=== PATIENT | male | born 1970 | race Caucasian/White ===

== ENCOUNTER 2016-10-29 12:32 | Emergency (ER) | payer SELFPAY ==
[2016-10-29 13:30] LABS: Basophils % (Auto) 0.2 % (0.0-1.8); Eosinophils % (Auto) 0.6 % (0.0-4.3); Hematocrit 46.1 % (35.5-45.6); Hemoglobin 15.6 gm/dl (11.8-15.2); Mean Corpuscular HGB Conc 34 % (32-34); Mean Corpuscular Hemoglobin 28 pg (28-32); Mean Corpuscular Volume 83 fl (84-94); Platelet Count 203 K/mm3 (140-440); Red Blood Count 5.53 M/mm3 (3.65-5.03); Red Cell Distribution Width 12.6 % (13.2-15.2)
[2016-10-29 13:48] LABS: Anion Gap 22 mmol/L; B-Hydroxybutyrate 14.9 mg/dL (0.2-2.8); BUN/Creatinine Ratio 28.57; Blood Urea Nitrogen 20 mg/dL (9-20); Carbon Dioxide 22 mmol/L (22-30); Chloride 89.5 mmol/L (98-107); Potassium 4.5 mmol/L (3.6-5.0); Sodium 129 mmol/L (137-145)
[2016-10-29 13:53] LABS: Glucose 511 mg/dL (75-100)
--- NOTE | 2016-10-29 14:02 | Admit Criteria Form ---
Admission Criteria Documentation: DIABETES Clinical Indications for Admission to Inpatient Care (Place 'X' for any and all applicable criteria): Admission is indicated by presence of ALL (if I & II) or ANY ONE (if III or IV) of the following (1)(2)(3)(4): [X]I. Diabetes is uncontrolled as indicated by ANY ONE of the following: [X]a) Diabetic ketoacidosis as indicated by ALL of the following (8): [X]i) Hyperglycemia (eg, plasma glucose greater than 200 mg/ dL (11.1 mmol/L)) [ ]ii) Acidosis (eg, arterial pH less than 7.30, serum bicarbonate level less than 15 mEq/L (mmol/L)) [X]iii) Moderate ketonuria or ketonemia [ ]b) Hyperglycemic hyperosmolar state as indicated by ALL of the following(9)(10): [ ]i) Neurologic dysfunction (eg, stupor, coma, hemiparesis , seizure)(13) [ ]ii) Plasma glucose greater than 600 mg/dL (33.3 mmol/L) [ ]iii) Serum osmolality greater than 320 mOsm/kg (mmol/kg) [X]c) Severe signs or symptoms secondary to hyperglycemia indicated by ANY ONE of the following: [ ]i) Altered mental status(10) [ ]ii) Significant hypovolemia or dehydration [ ]iii) Intractable nausea or vomiting [ ]iv) Unexplained fever or severe infection [X]v) Severe electrolyte abnormality (eg, hypokalemia, hyperkalemia, hypernatremia) [ ]II. Management at other levels of care (Also use Diabetes: Observation Care as appropriate) is not feasible because of ANY ONE of the following: [ ]a) Condition was not adequately corrected with treatment at other levels of care. [ ]b) Treatment at other levels of care is not appropriate because of condition severity (eg, hyperosmolar coma). [X]III. Contraindications and/or Inappropriate clinical situations for Observational Care in patients with Diabetes, when ANY ONE of the following is required: [X]a) Patient require specific diagnostic workup or therapeutic intervention 22 [ ]b) Patient with abnormal vital signs or altered mental status 23 [ ]IV. General contraindications and/or Inappropriate clinical situations for Observational Care in patients with Diabetes, when ANY ONE of the following is required: [ ]a) Prediction of prolongation of LOS based on ANY ONE of the following may be considered as a contraindication for observational care 2, 3, 4, 5, 6, 7, 8, 9, 10, 11 [ ]i) Age > 65 yrs. [ ]ii) Patient arriving by ambulance [ ]iii) Patient with high acuity [ ]iv) Patient requiring vital sign monitoring [ ]v) Patient on IV medication [ ]b) Systolic blood pressures 180mmHg 3,12 [ ]c) Patient with altered mental status including delirium and other alteration of consciousness, (3) [ ]d) Patient whose discharge disposition will be to a long-term home or rehabilitation home should not be managed in Emergency Department Observation Unit. CMS rule requires 3 days hospital stay before such placement.3,13 [ ]e) Patient with failure to thrive due to broad array of etiologies 3,16,17 [ ]f) Inability to ambulate 3,14 Extended stay beyond goal length of stay may be needed for(3)(20): [ ]a) Treatment of precipitating causes [ ]b) Development of hypoglycemia [ ]c) Complications of treatment [ ]d) Complications of decompensated diabetes (eg, acute gastric dilatation, persistent metabolic or neurologic derangement) [ ]e) Active Comorbidities [ ]f) Older patients( 65 years or older) The original [facility] content created by [employer] has been revised. The portions of the content which have been revised are identified through the use of italic text or in bold,and [facility] [employer] has neither reviewed nor approved the modified material. All other unmodified content is copyright [facility]. Please see references footnoted in the original [facility] edition 2016
[2016-10-29] MEDS ORDERED: NACL 0.9% 1000 ML 1,000 ML ONE (14:14)
[2016-10-29] MEDS ORDERED: NACL 0.9% 1000 ML 1,000 ML IV ONE (14:31)
[2016-10-29] MEDS ORDERED: APRESOLINE IV ONE (15:05)
--- NOTE | 2016-10-29 18:41 | Emergency Department Report ---
HPI - General Chief Complaint: Hyperglycemia Time Seen by Provider: 10/29/16 15:07 - HPI HPI: The patient is a 46-year-old male with a history of diabetes and hypertension, who presents for evaluation of lightheadedness and generalized weakness. The patient reports weeks of mild generalized weakness and moderate to severe lightheadedness, elicited with standing or exertion, improved with rest lying flat. He states that his symptoms were worse over the past day, and he found his blood sugar to be significantly elevated, prompting presentation to the emergency department. He admits to polyuria, polyphagia frequency, dry mouth. He shares that he discontinued use of this diabetes and hypertension medications without approval from his physician to do so. The patient denies fever, head injury, headache, neck pain, neck stiffness, vision or hearing changes, smell or taste changes, paresthesias, facial drooping, slurred speech, seizure-like activity, or other focal neurological deficit. ED Past Medical Hx - Past Medical History Hx Hypertension: Yes Hx Diabetes: Yes - Social History Smoking Status: Never Smoker Substance Use Type: Alcohol - Medications Home Medications: Home Medications Medication Instructions Recorded Confirmed Last Taken Type Lisinopril [Zestril TAB] 20 mg PO QDAY #30 tablet 10/29/16 Unknown Rx glipiZIDE [glipiZIDE ER] 5 mg PO QAM #30 tab.er.24 10/29/16 Unknown Rx ED Review of Systems ROS: Stated complaint: HBP HBS Other details as noted in HPI Constitutional: denies: fever; reports lightheadedness ENT: denies: throat or neck pain Respiratory: denies: cough, shortness of breath Cardiovascular: denies: chest pain Endocrine: denies unexplained weight loss or gain Gastrointestinal: denies: abdominal pain, nausea Genitourinary: reports polyuria denies: dysuria Musculoskeletal: denies: leg swelling Skin: denies: rash Neurological: denies: headache Hematological/Lymphatic: denies: easy bleeding or easy bruising Psych: denies sadness or hopelessness Physical Exam - Physical Exam Vital Signs: Vital Signs 10/29/16 12:38 Temperature 98 F Pulse Rate 68 Respiratory 18 Rate Blood Pressure 186/130 O2 Sat by Pulse 100 Oximetry Physical Exam: General: well-nourished, well-developed, no acute distress Head: Normocephalic, atraumatic Eyes: normal sclera, no nystagmus ENT: Mucous membranes are pale and dry Neck: No neck stiffness, no cervical adenopathy Respiratory: Breath sounds equal bilaterally, no wheezing, rales, or rhonchi Cardio: S1 and S2 present, no murmurs, rubs, gallops, capillary refill is delayed Abdomen: Normoactive bowel sounds, soft abdomen, no rigidity, no guarding or rebound tenderness Musc: No pitting edema Skin: No rash Neuro: no facial drooping, normal speech Psych: Normal affect ED Course Vital Signs 10/29/16 12:38 Temperature 98 F Pulse Rate 68 Respiratory 18 Rate Blood Pressure 186/130 O2 Sat by Pulse 100 Oximetry ED Medical Decision Making - Lab Data Result diagrams: 10/29/16 13:20 10/29/16 13:19 - Medical Decision Making The patient was seen and examined by myself. The patient is placed on a director of cardiac cath lab and continuous pulse ox. On initial evaluation, the patient was found to be in no distress. Evaluation orders were placed. The patient is given 1 L normal saline fluid bolus for treatment of dehydration. Lab results reveal elevated glucose of 511, with normal pH level and bicarbonate, not consistent with DKA. Labs also exhibited elevated RBC, hemoglobin, and hematocrit, consistent with hemoconcentration and exam findings of dehydration, and otherwise labs were grossly unremarkable. The patient received 10 units of IV insulin for elevated glucose and IV hydralazine for her elevated blood pressure. The patient was reevaluated and reported that their symptoms were markedly improved. The patient is stable for discharge with outpatient follow- up. The patient is given follow-up and return instructions. The patient expressed understanding and agreed with the plan. The patient is discharged in stable condition. Critical care attestation.: If time is entered above; I have spent that time in minutes in the direct care of this critically ill patient, excluding procedure time. ED Disposition Clinical Impression: Acute hyperglycemia, Dehydration, Asymptomatic hypertensive urgency, Orthostatic lightheadedness Disposition: DISCHARGED TO HOME OR SELFCARE Is pt being admited?: No Does the pt Need Aspirin: No Condition: Stable Instructions: Chronic Hypertension (ED), Diabetes Mellitus Type 2 in Adults (ED ), Diabetic Retinopathy (ED), Diabetic Neuropathy (ED), Meal Planning with Diabetes Exchanges (DC) Prescriptions: glipiZIDE [glipiZIDE ER] 5 mg PO QAM #30 tab.er.24 Lisinopril [Zestril TAB] 20 mg PO QDAY #30 tablet Referrals: PRIMARY CARE, [Primary Care Provider] - 3-5 Days Time of Disposition: 18:41 Print Language: URDU
[2016-10-29 18:54] VITALS: BP 127/78
== END 2016-10-29 19:22 | disposition home or self-care (01) ==
LOC: ED 12:32
DX: E11.65 Type 2 diabetes mellitus with hyperglycemia (principal); E86.0 Dehydration; I10 Essential (primary) hypertension; R42 Dizziness and giddiness
CPT/HCPCS: 36415; 80048; 82010; 82140; 82805; 82962; 85025; 96361; 96374; 96375; 99284; J0360; J7030; J1815

== ENCOUNTER 2018-10-07 13:56 | Inpatient (IN) | payer SELFPAY ==
[2018-10-07 18:44] LABS: Basophils # (Auto) 0.1 K/mm3 (0.0-0.1); Basophils % (Auto) 0.5 % (0.0-1.8); Eosinophils % (Auto) 0.2 % (0.0-4.3); Hematocrit 42.3 % (35.5-45.6); Hemoglobin 13.9 gm/dl (11.8-15.2); Lymphocytes # (Auto) 1.4 K/mm3 (1.2-5.4); Lymphocytes % (Auto) 7.2 % (13.4-35.0); Mean Corpuscular HGB Conc 33 % (32-34); Mean Corpuscular Volume 89 fl (84-94); Monocytes # (Auto) 1.5 K/mm3 (0.0-0.8); Monocytes % (Auto) 7.9 % (0.0-7.3); Platelet Count 244 K/mm3 (140-440); Red Blood Count 4.78 M/mm3 (3.65-5.03)
[2018-10-07 18:57] LABS: BUN/Creatinine Ratio 27; Blood Urea Nitrogen 24 mg/dL (9-20); Calcium 9.5 mg/dL (8.4-10.2); Hemolysis Index 23
[2018-10-07] MEDS ORDERED: NACL 0.9% 1000 ML 1,000 ML IV ONE ×3 (19:20)
[2018-10-07] MEDS ORDERED: ZOSYN/NS 4.5GM/100ML 4.5 GM/100 ML VIAL IV ONE (19:21)
[2018-10-07] MEDS ORDERED: VANCOMYCIN/NS 1 GM/250 ML 1 GM/250 ML BAG IV ONE (19:21)
--- NOTE | 2018-10-07 19:24 | Emergency Department Report ---
- General Chief complaint: Skin/Abscess/Foreign Body Stated complaint: HYPERGLYCEMIA Time Seen by Provider: 10/07/18 18:32 Source: family, correctional counselor/case manager Mode of arrival: Ambulatory Limitations: Language Barrier - History of Present Illness MD complaint: abscess/boil (Back of neck) -: Gradual Location: neck Severity: severe Severity scale (0 -10): 8 Quality: aching, dull Consistency: constant Improves with: none Worsens with: none Associated symptoms: denies other symptoms Treatments Prior to Arrival: none - Related Data Previous Rx's Medication Instructions Recorded Last Taken Type Lisinopril [Zestril TAB] 20 mg PO QDAY #30 tablet 10/29/16 Unknown Rx glipiZIDE [glipiZIDE ER] 5 mg PO QAM #30 tab.er.24 10/29/16 Unknown Rx Allergies Allergy/AdvReac Type Severity Reaction Status Date / Time No Known Allergies Allergy Verified 10/07/18 14:05 [facility]cess [facility] Chief Complaint: Skin/Abscess/Foreign Body Stated Complaint: HYPERGLYCEMIA Time Seen by Provider: 10/07/18 18:32 Home Medications: Previous Rx's Medication Instructions Recorded Last Taken Type Lisinopril [Zestril TAB] 20 mg PO QDAY #30 tablet 10/29/16 Unknown Rx glipiZIDE [glipiZIDE ER] 5 mg PO QAM #30 tab.er.24 10/29/16 Unknown Rx Allergies/Adverse Reactions: Allergies Allergy/AdvReac Type Severity Reaction Status Date / Time No Known Allergies Allergy Verified 10/07/18 14:05 ED Review of Systems ROS: Stated complaint: HYPERGLYCEMIA Other details as noted in HPI Comment: All other systems reviewed and negative Constitutional: denies: chills, fever Eyes: denies: eye pain, eye discharge, vision change ENT: denies: ear pain, throat pain Respiratory: denies: cough, shortness of breath, wheezing Cardiovascular: denies: chest pain, palpitations Endocrine: no symptoms reported Gastrointestinal: denies: abdominal pain, nausea, diarrhea Genitourinary: denies: urgency, dysuria Musculoskeletal: denies: back pain, joint swelling, arthralgia Skin: other (Posterior neck redness and swelling.). denies: rash, lesions Neurological: denies: headache, weakness, numbness, paresthesias Psychiatric: denies: anxiety, depression Hematological/Lymphatic: denies: easy bleeding, easy bruising ED Past Medical Hx - Past Medical History Hx Hypertension: Yes Hx Diabetes: Yes - Surgical History Past Surgical History?: No - Social History Smoking Status: Never Smoker Substance Use Type: None - Medications Home Medications: Home Medications Medication Instructions Recorded Confirmed Last Taken Type Lisinopril [Zestril TAB] 20 mg PO QDAY #30 tablet 10/29/16 10/07/18 Unknown Rx glipiZIDE [glipiZIDE ER] 5 mg PO QAM #30 tab.er.24 10/29/16 10/07/18 Unknown Rx ED Physical Exam - General Limitations: Language Barrier General appearance: alert, in no apparent distress - Head Head exam: Present: atraumatic, normocephalic - Eye Eye exam: Present: normal appearance, PERRL, EOMI Pupils: Present: normal accommodation - ENT ENT exam: Present: normal orophraynx, mucous membranes moist, other (Posterior neck erythema and induration consistent with Cellulitis. Tender to palpation and warm to touch.) - Neck Neck exam: Present: normal inspection, full ROM. Absent: tenderness, meningismus - Respiratory Respiratory exam: Present: normal lung sounds bilaterally. Absent: respiratory distress, wheezes, rales, rhonchi, stridor - Cardiovascular Cardiovascular Exam: Present: regular rate, normal rhythm, normal heart sounds. Absent: systolic murmur, diastolic murmur, rubs, gallop - GI/Abdominal GI/Abdominal exam: Present: soft, normal bowel sounds. Absent: distended, tenderness, guarding, rebound - Rectal Rectal exam: Present: deferred - Extremities Exam Extremities exam: Present: normal inspection, full ROM, normal capillary refill. Absent: tenderness - Back Exam Back exam: Present: normal inspection. Absent: full ROM, tenderness - Neurological Exam Neurological exam: Present: alert, oriented X3, CN II-XII intact - Psychiatric Psychiatric exam: Present: normal affect, normal mood - Skin Skin exam: Present: warm, dry, intact, normal color. Absent: rash ED Course Vital Signs 10/07/18 10/07/18 14:05 17:51 Temperature 98.1 F Pulse Rate 94 H 74 Respiratory 18 16 Rate Blood Pressure 129/79 Blood Pressure 114/71 [Left] O2 Sat by Pulse 96 98 Oximetry - Consultations Consultation #1: 10/07/18 21:00 Dr Jackie Gauthier to admit patient for further management. ED Medical Decision Making - Lab Data Result diagrams: 10/07/18 18:25 10/07/18 21:16 Lab Results 10/07/18 10/07/18 10/07/18 Range/Units 14:07 18:25 18:25 WBC 19.5 H (4.5-11.0) K/mm3 RBC 4.78 (3.65-5.03) M/mm3 Hgb 13.9 (11.8-15.2) gm/dl Hct 42.3 (35.5-45.6) % MCV 89 (84-94) fl MCH 29 (28-32) pg MCHC 33 (32-34) % RDW 13.0 L (13.2-15.2) % Plt Count 244 (140-440) K/mm3 Lymph % (Auto) 7.2 L (13.4-35.0) % Miller % (Auto) 7.9 H (0.0-7.3) % Eos % (Auto) 0.2 (0.0-4.3) % Baso % (Auto) 0.5 (0.0-1.8) % Lymph # 1.4 (1.2-5.4) K/mm3 Miller # 1.5 H (0.0-0.8) K/mm3 Eos # 0.0 (0.0-0.4) K/mm3 Baso # 0.1 (0.0-0.1) K/mm3 Seg Neutrophils % 84.2 H (40.0-70.0) % Seg Neutrophils # 16.4 H (1.8-7.7) K/mm3 PT (12.2-14.9) Sec. INR (0.87-1.13) APTT (24.2-36.6) Sec. VBG pH (7.320-7.420) Sodium 123 L (137-145) mmol/L Potassium 4.3 (3.6-5.0) mmol/L Chloride 78.4 L (98-107) mmol/L Carbon Dioxide 17 L (22-30) mmol/L Anion Gap 32 mmol/L BUN 24 H (9-20) mg/dL Creatinine 0.9 (0.8-1.5) mg/dL Estimated GFR > 60 ml/min BUN/Creatinine Ratio 27 % Glucose 480 H (75-100) mg/dL POC Glucose 420 H (70-105) Hemoglobin A1c (4-6) % Lactic Acid (0.7-2.0) mmol/L Calcium 9.5 (8.4-10.2) mg/dL Phosphorus (2.5-4.5) mg/dL Magnesium (1.7-2.3) mg/dL Urine Color (Yellow) Urine Turbidity (Clear) Urine pH (5.0-7.0) Ur Specific [place] (1.003-1.030) Urine Protein (Negative) mg/dL Urine Glucose (UA) (Negative) mg/dL Urine Ketones (Negative) mg/dL Urine Blood (Negative) Urine Nitrite (Negative) Urine Bilirubin (Negative) Urine Urobilinogen (<2.0) mg/dL Ur Leukocyte Esterase (Negative) Urine WBC (Auto) (0.0-6.0) /HPF Urine RBC (Auto) (0.0-6.0) /HPF U Epithel Cells (Auto) (0-13.0) /HPF 10/07/18 10/07/18 10/07/18 Range/Units 18:25 18:25 19:40 WBC (4.5-11.0) K/mm3 RBC (3.65-5.03) M/mm3 Hgb (11.8-15.2) gm/dl Hct (35.5-45.6) % MCV (84-94) fl MCH (28-32) pg MCHC (32-34) % RDW (13.2-15.2) % Plt Count (140-440) K/mm3 Lymph % (Auto) (13.4-35.0) % Miller % (Auto) (0.0-7.3) % Eos % (Auto) (0.0-4.3) % Baso % (Auto) (0.0-1.8) % Lymph # (1.2-5.4) K/mm3 Miller # (0.0-0.8) K/mm3 Eos # (0.0-0.4) K/mm3 Baso # (0.0-0.1) K/mm3 Seg Neutrophils % (40.0-70.0) % Seg Neutrophils # (1.8-7.7) K/mm3 PT 12.8 (12.2-14.9) Sec. INR 0.92 (0.87-1.13) APTT 21.3 L (24.2-36.6) Sec. VBG pH 7.278 L (7.320-7.420) Sodium (137-145) mmol/L Potassium (3.6-5.0) mmol/L Chloride (98-107) mmol/L Carbon Dioxide (22-30) mmol/L Anion Gap mmol/L BUN (9-20) mg/dL Creatinine (0.8-1.5) mg/dL Estimated GFR ml/min BUN/Creatinine Ratio % Glucose (75-100) mg/dL POC Glucose (70-105) Hemoglobin A1c > 20.1 H (4-6) % Lactic Acid (0.7-2.0) mmol/L Calcium (8.4-10.2) mg/dL Phosphorus (2.5-4.5) mg/dL Magnesium (1.7-2.3) mg/dL Urine Color (Yellow) Urine Turbidity (Clear) Urine pH (5.0-7.0) Ur Specific [place] (1.003-1.030) Urine Protein (Negative) mg/dL Urine Glucose (UA) (Negative) mg/dL Urine Ketones (Negative) mg/dL Urine Blood (Negative) Urine Nitrite (Negative) Urine Bilirubin (Negative) Urine Urobilinogen (<2.0) mg/dL Ur Leukocyte Esterase (Negative) Urine WBC (Auto) (0.0-6.0) /HPF Urine RBC (Auto) (0.0-6.0) /HPF U Epithel Cells (Auto) (0-13.0) /HPF 10/07/18 10/07/18 10/07/18 Range/Units 19:40 20:08 20:50 WBC (4.5-11.0) K/mm3 RBC (3.65-5.03) M/mm3 Hgb (11.8-15.2) gm/dl Hct (35.5-45.6) % MCV (84-94) fl MCH (28-32) pg MCHC (32-34) % RDW (13.2-15.2) % Plt Count (140-440) K/mm3 Lymph % (Auto) (13.4-35.0) % Miller % (Auto) (0.0-7.3) % Eos % (Auto) (0.0-4.3) % Baso % (Auto) (0.0-1.8) % Lymph # (1.2-5.4) K/mm3 Miller # (0.0-0.8) K/mm3 Eos # (0.0-0.4) K/mm3 Baso # (0.0-0.1) K/mm3 Seg Neutrophils % (40.0-70.0) % Seg Neutrophils # (1.8-7.7) K/mm3 PT (12.2-14.9) Sec. INR (0.87-1.13) APTT (24.2-36.6) Sec. VBG pH (7.320-7.420) Sodium (137-145) mmol/L Potassium (3.6-5.0) mmol/L Chloride (98-107) mmol/L Carbon Dioxide (22-30) mmol/L Anion Gap mmol/L BUN (9-20) mg/dL Creatinine (0.8-1.5) mg/dL Estimated GFR ml/min BUN/Creatinine Ratio % Glucose (75-100) mg/dL POC Glucose 375 H (70-105) Hemoglobin A1c (4-6) % Lactic Acid 1.30 (0.7-2.0) mmol/L Calcium (8.4-10.2) mg/dL Phosphorus (2.5-4.5) mg/dL Magnesium (1.7-2.3) mg/dL Urine Color Straw (Yellow) Urine Turbidity Clear (Clear) Urine pH 5.0 (5.0-7.0) Ur Specific [place] 1.023 (1.003-1.030) Urine Protein <15 mg/dl (Negative) mg/dL Urine Glucose (UA) >=500 (Negative) mg/dL Urine Ketones 80 (Negative) mg/dL Urine Blood Neg (Negative) Urine Nitrite Neg (Negative) Urine Bilirubin Neg (Negative) Urine Urobilinogen < 2.0 (<2.0) mg/dL Ur Leukocyte Esterase Neg (Negative) Urine WBC (Auto) < 1.0 (0.0-6.0) /HPF Urine RBC (Auto) 1.0 (0.0-6.0) /HPF U Epithel Cells (Auto) < 1.0 (0-13.0) /HPF 10/07/18 10/07/18 10/07/18 Range/Units 21:16 21:16 21:26 WBC (4.5-11.0) K/mm3 RBC (3.65-5.03) M/mm3 Hgb (11.8-15.2) gm/dl Hct (35.5-45.6) % MCV (84-94) fl MCH (28-32) pg MCHC (32-34) % RDW (13.2-15.2) % Plt Count (140-440) K/mm3 Lymph % (Auto) (13.4-35.0) % Miller % (Auto) (0.0-7.3) % Eos % (Auto) (0.0-4.3) % Baso % (Auto) (0.0-1.8) % Lymph # (1.2-5.4) K/mm3 Miller # (0.0-0.8) K/mm3 Eos # (0.0-0.4) K/mm3 Baso # (0.0-0.1) K/mm3 Seg Neutrophils % (40.0-70.0) % Seg Neutrophils # (1.8-7.7) K/mm3 PT (12.2-14.9) Sec. INR (0.87-1.13) APTT (24.2-36.6) Sec. VBG pH (7.320-7.420) Sodium 128 L (137-145) mmol/L Potassium (3.6-5.0) mmol/L Chloride 88.7 L (98-107) mmol/L Carbon Dioxide 17 L (22-30) mmol/L Anion Gap mmol/L BUN 19 (9-20) mg/dL Creatinine 0.8 (0.8-1.5) mg/dL Estimated GFR > 60 ml/min BUN/Creatinine Ratio 24 % Glucose 325 H (75-100) mg/dL POC Glucose 325 H (70-105) Hemoglobin A1c (4-6) % Lactic Acid (0.7-2.0) mmol/L Calcium 8.1 L (8.4-10.2) mg/dL Phosphorus 2.30 L (2.5-4.5) mg/dL Magnesium 1.50 L (1.7-2.3) mg/dL Urine Color (Yellow) Urine Turbidity (Clear) Urine pH (5.0-7.0) Ur Specific [place] (1.003-1.030) Urine Protein (Negative) mg/dL Urine Glucose (UA) (Negative) mg/dL Urine Ketones (Negative) mg/dL Urine Blood (Negative) Urine Nitrite (Negative) Urine Bilirubin (Negative) Urine Urobilinogen (<2.0) mg/dL Ur Leukocyte Esterase (Negative) Urine WBC (Auto) (0.0-6.0) /HPF Urine RBC (Auto) (0.0-6.0) /HPF U Epithel Cells (Auto) (0-13.0) /HPF - Radiology Data Radiology results: report reviewed, image reviewed CT Neck showed Cellulitis of the posterior neck. - Medical Decision Making Posterior Neck Cellulitis. DKA. Uncontrolled Diabetes. Critical Care Time: Yes Critical care time in (mins) excluding proc time.: 65 Critical care attestation.: If time is entered above; I have spent that time in minutes in the direct care of this critically ill patient, excluding procedure time. ED Disposition Clinical Impression: Cellulitis and abscess of neck DKA (diabetic ketoacidoses) Qualifiers: Diabetes mellitus type: type 2 Diabetes mellitus complication detail: without coma Qualified Code(s): E11.10 - Type 2 diabetes mellitus with ketoacidosis without coma Cellulitis Qualifiers: Site of cellulitis: neck Qualified Code(s): L03.221 - Cellulitis of neck Uncontrolled diabetes mellitus Qualifiers: Diabetes mellitus type: type 2 Glycemic state: with hyperglycemia Qualified Code(s): E11.65 - Type 2 diabetes mellitus with hyperglycemia Disposition: 09 OP ADMIT IP TO THIS HOSP Is pt being admited?: Yes Does the pt Need Aspirin: No Condition: Stable Instructions: Diabetic Ketoacidosis (ED), Diabetes Mellitus Type 2 in Adults (ED) Referrals: PRIMARY CARE, [Primary Care Provider] - 3-5 Days Time of Disposition: 21:15
[2018-10-07] MEDS ORDERED: VANCOMYCIN 1,500 MG in NACL 0.9% 500 ML 500 ML IV ONE (19:30)
[2018-10-07] MEDS ORDERED: D50W (25GM) Syringe IV PRN (19:37)
[2018-10-07] MEDS ORDERED: HumuLIN R IV ONE (19:39)
[2018-10-07] MEDS ORDERED: HumuLIN R 100 UNITS in NACL 0.9% 99 ML IV SCH (20:00)
[2018-10-07 20:22] LABS: INR 0.92 (0.87-1.13); Partial Thromboplastin Time 21.3 Sec. (24.2-36.6)
[2018-10-07 21:08] LABS: Bilirubin,Urine NEG (Negative); Blood,Urine NEG (Negative); Color,Urine Straw (Yellow); Protein,Urine <15 mg/dL mg/dL (Negative); Urobilinogen,Urine < 2.0 mg/dL (<2.0); WBC,Urine < 1.0 /HPF (0.0-6.0)
--- NOTE | 2018-10-07 21:53 | Cat Scan Report ---
FINAL REPORT EXAM: CT NECK W CON HISTORY: abscess TECHNIQUE: Helical CT was performed from the skull base to the thoracic inlet after the administrati on of iodinated intravenous contrast. 100 cc Omnipaque 300 were used for IV contrast agent. PRIORS: None. FINDINGS: There is swelling and edema of the subcutaneous fat of the posterior neck. There is a small raised sk in lesion. There is no evidence of abscess. The pharynx and para-pharyngeal soft tissues appear normal. The parotid and submandibular glands appe ar normal. The thyroid appears normal. There are numerous bilateral small to intermediate in size cer vical lymph nodes. The bones are unremarkable. No abnormal soft tissue masses are demonstrated. There is a small amount of fluid in the left maxillary sinus. There is mild atherosclerotic calcification in the bilateral proximal internal carotid arteries witho ut stenosis. IMPRESSION: Findings are consistent with cellulitis of the posterior neck. There is no evidence of abscess. Bilateral reactive cervical adenopathy.
[2018-10-07 22:01] LABS: BUN/Creatinine Ratio 24; Blood Urea Nitrogen 19 mg/dL (9-20); Calcium 8.1 mg/dL (8.4-10.2); Hemolysis Index 125
[2018-10-07 22:05] LABS: Albumin 2.7 g/dL (3.9-5)
[2018-10-07 22:23] LABS: Alanine Aminotransferase < 5 units/L (7-56); Bilirubin,Direct < 0.2 mg/dL (0-0.2)
[2018-10-07] MEDS ORDERED: ZOFRAN IV PRN (22:35)
[2018-10-07] MEDS ORDERED: TYLENOL PO PRN (22:35)
[2018-10-07] MEDS ORDERED: SODIUM CHLORIDE FLUSH SYRINGE 10 ML IV PRN (22:35)
[2018-10-07] MEDS ORDERED: SODIUM PHOSPHATE 30 MMOL in NACL 0.9% 500 ML 500 ML IV ONE (22:39)
--- NOTE | 2018-10-07 22:40 | History and Physical Report ---
History of Present Illness Date of examination: 10/07/18 History of present illness: 48-year-old male with a history of hypertension, diabetes develop a pimple at the back of his head which increased in size over the last 1 week. He went to seen for evaluation, his sugar was found to be greater than 600 and he was sent to the emergency room for further evaluation. He admits to foul-smelling yellow drainage from the back of his head, chills, no fever Review of systems Constitutional: no weight loss, fever Ears, eyes, nose, mouth and throat: no nasal congestion, no nasal discharge, no sinus pressure, no vision change, no red eye. Neck: No neck pain or rigidity. Cardiovascular: no palpitations, chest pain Respiratory: no cough, shortness of breath Gastrointestinal: no hematochezia, abdominal pain Genitourinary : no frequency , no hematuria Musculoskeletal: no joint swelling or muscle ache Integumentary: no rash, no pruritis Neurological: no parathesias, no focal weakness Endocrine: no cold or heat intolerance, no polyuria or polydipsia Hematologic/Lymphatic: no easy bruising, no easy bleeding, no gland swelling Allergic/Immunologic: no urticaria, no angioedema. PAST MEDICAL HISTORY: hypertension, diabetes PAST SURGICAL HISTORY: Right toe SOCIAL HISTORY: Drink 3 beers/day, no drugs, tobacco FAMILY HISTORY: Hypertension Medications and Allergies Allergies Allergy/AdvReac Type Severity Reaction Status Date / Time No Known Allergies Allergy Verified 10/07/18 14:05 Home Medications Medication Instructions Recorded Confirmed Last Taken Type Lisinopril [Zestril TAB] 20 mg PO QDAY #30 tablet 10/29/16 10/07/18 Unknown Rx glipiZIDE [glipiZIDE ER] 5 mg PO QAM #30 tab.er.24 10/29/16 10/07/18 Unknown Rx Active Meds: Active Medications Acetaminophen (Tylenol) 650 mg PO Q4H PRN PRN Reason: Pain MILD(1-3)/Fever >100.5/LAORSE Dextrose (D50w (25gm) Syringe) 0 ml IV PRN PRN PRN Reason: Hypoglycemia Enoxaparin Sodium (Lovenox) 30 mg SUB-Q QDAY [facility] Insulin Human Regular 100 (units/ Sodium Chloride) 100 mls @ 1 mls/hr IV TITR [facility]; Protocol Dextrose/Sodium Chloride (D5/0.45ns) 1,000 mls @ 125 mls/hr IV DIRECT [facility] Sodium Chloride (Nacl 0.9% 1000 Ml) 1,000 mls @ 125 mls/hr IV DIRECT [facility] Sodium Phosphate 30 mmol/ (Sodium Chloride) 510 mls @ 125 mls/hr IV ONCE ONE Stop: 10/08/18 02:43 Morphine Sulfate (Morphine) 2 mg IV Q4H PRN PRN Reason: Pain, Moderate (4-6) Ondansetron HCl (Zofran) 4 mg IV Q8H PRN PRN Reason: Nausea And Vomiting Sodium Chloride (Sodium Chloride Flush Syringe 10 Ml) 10 ml IV BID [facility] Sodium Chloride (Sodium Chloride Flush Syringe 10 Ml) 10 ml IV PRN PRN PRN Reason: LINE FLUSH Exam - Physical Exam Narrative exam: General Apperance: The patient lying in bed, breathing comfortable HEENT: Normocephalic, atraumatic. Pupils equally round and reactive to light, EOMI, no sclericterus or JVD or thyromegaly or nodule , no carotid bruit, mucous membranes moist, no exudate or erythema Heart: S1-S2, regular is rhythm Lungs: Clear to auscultation bilaterally, breathing comfortable Abdomen: Positive bowel sounds, soft, nontender, nondistended, no organomegaly Extremities: No edema cyanosis clubbing Skin: Indurated area in the hospital area, yellow drainage, tender to touch, positive erythema , no rash, nodule, warm and dry Neuro: cranial nerves 2-12 intact, speech is fluent, motor/sensory intact - Constitutional Vitals: Temp Pulse Resp BP Pulse Ox 98.1 F 74 16 114/71 98 10/07/18 14:05 10/07/18 17:51 10/07/18 17:51 10/07/18 17:51 10/07/18 17:51 Results - Labs CBC & Chem 7: 10/07/18 18:25 10/07/18 23:33 Labs: Abnormal lab results 10/07/18 10/07/18 10/07/18 Range/Units 14:07 18:25 18:25 WBC 19.5 H (4.5-11.0) K/mm3 RDW 13.0 L (13.2-15.2) % Lymph % (Auto) 7.2 L (13.4-35.0) % [place] % (Auto) 7.9 H (0.0-7.3) % [place] # 1.5 H (0.0-0.8) K/mm3 Seg Neutrophils % 84.2 H (40.0-70.0) % Seg Neutrophils # 16.4 H (1.8-7.7) K/mm3 APTT (24.2-36.6) Sec. VBG pH (7.320-7.420) Sodium 123 L (137-145) mmol/L Chloride 78.4 L (98-107) mmol/L Carbon Dioxide 17 L (22-30) mmol/L BUN 24 H (9-20) mg/dL Glucose 480 H (75-100) mg/dL POC Glucose 420 H (70-105) Hemoglobin A1c (4-6) % Calcium (8.4-10.2) mg/dL Phosphorus (2.5-4.5) mg/dL Magnesium (1.7-2.3) mg/dL AST (5-40) units/L ALT (7-56) units/L Alkaline Phosphatase (35-129) units/L Albumin (3.9-5) g/dL 10/07/18 10/07/18 10/07/18 Range/Units 18:25 18:25 19:40 WBC (4.5-11.0) K/mm3 RDW (13.2-15.2) % Lymph % (Auto) (13.4-35.0) % [place] % (Auto) (0.0-7.3) % [place] # (0.0-0.8) K/mm3 Seg Neutrophils % (40.0-70.0) % Seg Neutrophils # (1.8-7.7) K/mm3 APTT 21.3 L (24.2-36.6) Sec. VBG pH 7.278 L (7.320-7.420) Sodium (137-145) mmol/L Chloride (98-107) mmol/L Carbon Dioxide (22-30) mmol/L BUN (9-20) mg/dL Glucose (75-100) mg/dL POC Glucose (70-105) Hemoglobin A1c > 20.1 H (4-6) % Calcium (8.4-10.2) mg/dL Phosphorus (2.5-4.5) mg/dL Magnesium (1.7-2.3) mg/dL AST (5-40) units/L ALT (7-56) units/L Alkaline Phosphatase (35-129) units/L Albumin (3.9-5) g/dL 10/07/18 10/07/18 10/07/18 Range/Units 20:08 21:16 21:16 WBC (4.5-11.0) K/mm3 RDW (13.2-15.2) % Lymph % (Auto) (13.4-35.0) % [place] % (Auto) (0.0-7.3) % [place] # (0.0-0.8) K/mm3 Seg Neutrophils % (40.0-70.0) % Seg Neutrophils # (1.8-7.7) K/mm3 APTT (24.2-36.6) Sec. VBG pH (7.320-7.420) Sodium (137-145) mmol/L Chloride (98-107) mmol/L Carbon Dioxide (22-30) mmol/L BUN (9-20) mg/dL Glucose (75-100) mg/dL POC Glucose 375 H (70-105) Hemoglobin A1c (4-6) % Calcium (8.4-10.2) mg/dL Phosphorus 2.30 L (2.5-4.5) mg/dL Magnesium 1.50 L (1.7-2.3) mg/dL AST < 5 L (5-40) units/L ALT < 5 L (7-56) units/L Alkaline Phosphatase 136 H (35-129) units/L Albumin 2.7 L (3.9-5) g/dL 10/07/18 10/07/18 Range/Units 21:16 21:26 WBC (4.5-11.0) K/mm3 RDW (13.2-15.2) % Lymph % (Auto) (13.4-35.0) % [place] % (Auto) (0.0-7.3) % [place] # (0.0-0.8) K/mm3 Seg Neutrophils % (40.0-70.0) % Seg Neutrophils # (1.8-7.7) K/mm3 APTT (24.2-36.6) Sec. VBG pH (7.320-7.420) Sodium 128 L (137-145) mmol/L Chloride 88.7 L (98-107) mmol/L Carbon Dioxide 17 L (22-30) mmol/L BUN (9-20) mg/dL Glucose 325 H (75-100) mg/dL POC Glucose 325 H (70-105) Hemoglobin A1c (4-6) % Calcium 8.1 L (8.4-10.2) mg/dL Phosphorus (2.5-4.5) mg/dL Magnesium (1.7-2.3) mg/dL AST (5-40) units/L ALT (7-56) units/L Alkaline Phosphatase (35-129) units/L Albumin (3.9-5) g/dL Assessment and Plan ct neck reviewed Assessment DKA Sepsis Cellulitis of the posterior neck Hypertension Plan Admit to medicine Start DKA protocol with insulin drip, IV fluid Monitor serial chemistry, check A1c Consult critical care, surgery Start IV Zosyn, follow cultures, obtain culture of the wound DVT prophylaxis
[2018-10-07] MEDS ORDERED: NACL 0.9% 1000 ML 1,000 ML IV SCH (23:00)
[2018-10-07] MEDS ORDERED: D5/0.45NS 1,000 ML IV SCH (23:00)
[2018-10-07] MEDS ORDERED: NACL 0.9% 500 ML ONE (23:45)
[2018-10-07] MEDS ORDERED: KPHOS 30 MMOL in NACL 0.9% 500 ML 500 ML IV ONE (23:45)
[2018-10-07] MEDS ORDERED: KPHOS IV ONE (23:45)
[2018-10-07 23:55] LABS: BUN/Creatinine Ratio 23; Blood Urea Nitrogen 16 mg/dL (9-20); Calcium 8.4 mg/dL (8.4-10.2); Hemolysis Index 32
[2018-10-08] MEDS: NACL 0.9% 1000 ML 1,000 ML IV SCH (01:39)
[2018-10-08 01:53] LABS: BUN/Creatinine Ratio 22; Blood Urea Nitrogen 13 mg/dL (9-20); Calcium 8.2 mg/dL (8.4-10.2); Hemolysis Index 13
[2018-10-08 05:30] LABS: BUN/Creatinine Ratio 17; Blood Urea Nitrogen 10 mg/dL (9-20); Calcium 8.2 mg/dL (8.4-10.2); Hemolysis Index 23
[2018-10-08] MEDS: ZOSYN/NS 4.5GM/100ML 4.5 GM/100 ML VIAL IV SCH ×3 (05:41→22:01)
[2018-10-08] MEDS ORDERED: MAGNESIUM SULFATE IV ONE (08:48)
[2018-10-08] MEDS ORDERED: D5W/0.45% NACL/KCL 20 MEQ 20 MEQ/1,000 ML BAG IV SCH (09:00)
[2018-10-08] MEDS ORDERED: MAGNESIUM SULFATE 1 GM in NACL 0.9% 50 ML IV ONE (09:30)
[2018-10-08] MEDS: LOVENOX SUB-Q SCH (10:47)
[2018-10-08] MEDS: SODIUM CHLORIDE FLUSH SYRINGE 10 ML IV SCH ×2 (10:48→22:09)
--- NOTE | 2018-10-08 12:49 | Consultation ---
History of Present Illness Consult date: 10/08/18 Chief complaint: abscess - History of present illness History of present illness: 48yo M with hx of DM, HTN presented to ER for evaluation of boil on the back of his neck which has increased in size over 1 wk. He admits to drainage from the area. It is painful. His blood sugar was found to be 480 on labs and he was admitted to ICU for DKA management. Surgery is consulted to evaluate abscess. No f/c. Past History Past Medical History: diabetes, hypertension Past Surgical History: No surgical history Social history: denies: smoking, alcohol abuse Family history: no significant family history Medications and Allergies Allergies Allergy/AdvReac Type Severity Reaction Status Date / Time No Known Allergies Allergy Verified 10/07/18 14:05 Home Medications Medication Instructions Recorded Confirmed Last Taken Type Lisinopril [Zestril TAB] 20 mg PO QDAY #30 tablet 10/29/16 10/07/18 Unknown Rx glipiZIDE [glipiZIDE ER] 5 mg PO QAM #30 tab.er.24 10/29/16 10/07/18 Unknown Rx Active Meds: Active Medications Acetaminophen (Tylenol) 650 mg PO Q4H PRN PRN Reason: Pain MILD(1-3)/Fever >100.5/LAROSE Dextrose (D50w (25gm) Syringe) 0 ml IV PRN PRN PRN Reason: Hypoglycemia Enoxaparin Sodium (Lovenox) 40 mg SUB-Q QDAY [facility] Last Admin: 10/08/18 10:47 Dose: 40 mg Documented by: Insulin Human Regular 100 (units/ Sodium Chloride) 100 mls @ 1 mls/hr IV TITR [facility]; Protocol Last Titration: 10/08/18 10:00 Dose: 3 units/hr, 3 mls/hr Documented by: Piperacillin Sod/Tazobactam Sod (Zosyn/Ns 4.5gm/100ml) 4.5 gm in 100 mls @ 200 mls/hr IV Q8H [facility]; Protocol Last Admin: 10/08/18 05:41 Dose: 200 mls/hr Documented by: Sodium Chloride (Nacl 0.9% 1000 Ml) 1,000 mls @ 125 mls/hr IV DIRECT [facility] Last Admin: 10/08/18 01:39 Dose: 125 mls/hr Documented by: Potassium Chloride/Dextrose/Sod Cl (D5w/0.45% Nacl/Kcl 20 Meq) 20 meq in 1,000 mls @ 125 mls/hr IV DIRECT [facility] Last Admin: 10/08/18 09:45 Dose: 125 mls/hr Documented by: Morphine Sulfate (Morphine) 2 mg IV Q4H PRN PRN Reason: Pain, Moderate (4-6) Ondansetron HCl (Zofran) 4 mg IV Q8H PRN PRN Reason: Nausea And Vomiting Sodium Chloride (Sodium Chloride Flush Syringe 10 Ml) 10 ml IV BID [facility] Last Admin: 10/08/18 10:48 Dose: 10 ml Documented by: Sodium Chloride (Sodium Chloride Flush Syringe 10 Ml) 10 ml IV PRN PRN PRN Reason: LINE FLUSH Review of Systems All systems: negative (10 pt ROS performed and negative except for that listed in HPI) Exam Vital Signs Temp Pulse Resp BP Pulse Ox 98.1 F 94 H 18 129/79 96 10/07/18 14:05 10/07/18 14:05 10/07/18 14:05 10/07/18 14:05 10/07/18 14:05 Narrative exam: Gen: AAOx3. NAD ENT: no scleral icterus or conjunctival pallor. 4cm x 4cm area of fluctuance, induration, erythema on posterior neck with purulent drainage. CV: S1, S2+ resp: even and unlabored Ext: no c/c/e Results - Labs 10/07/18 18:25 10/08/18 12:25 Abnormal lab results 10/07/18 10/07/18 10/07/18 Range/Units 14:07 18:25 18:25 WBC 19.5 H (4.5-11.0) K/mm3 RDW 13.0 L (13.2-15.2) % Lymph % (Auto) 7.2 L (13.4-35.0) % [place] % (Auto) 7.9 H (0.0-7.3) % [place] # 1.5 H (0.0-0.8) K/mm3 Seg Neutrophils % 84.2 H (40.0-70.0) % Seg Neutrophils # 16.4 H (1.8-7.7) K/mm3 APTT (24.2-36.6) Sec. VBG pH (7.320-7.420) Sodium 123 L (137-145) mmol/L Potassium (3.6-5.0) mmol/L Chloride 78.4 L (98-107) mmol/L Carbon Dioxide 17 L (22-30) mmol/L BUN 24 H (9-20) mg/dL Creatinine (0.8-1.5) mg/dL Glucose 480 H (75-100) mg/dL POC Glucose 420 H (70-105) Hemoglobin A1c (4-6) % Calcium (8.4-10.2) mg/dL Phosphorus (2.5-4.5) mg/dL Magnesium (1.7-2.3) mg/dL AST (5-40) units/L ALT (7-56) units/L Alkaline Phosphatase (35-129) units/L Albumin (3.9-5) g/dL 10/07/18 10/07/18 10/07/18 Range/Units 18:25 18:25 19:40 WBC (4.5-11.0) K/mm3 RDW (13.2-15.2) % Lymph % (Auto) (13.4-35.0) % [place] % (Auto) (0.0-7.3) % [place] # (0.0-0.8) K/mm3 Seg Neutrophils % (40.0-70.0) % Seg Neutrophils # (1.8-7.7) K/mm3 APTT 21.3 L (24.2-36.6) Sec. VBG pH 7.278 L (7.320-7.420) Sodium (137-145) mmol/L Potassium (3.6-5.0) mmol/L Chloride (98-107) mmol/L Carbon Dioxide (22-30) mmol/L BUN (9-20) mg/dL Creatinine (0.8-1.5) mg/dL Glucose (75-100) mg/dL POC Glucose (70-105) Hemoglobin A1c > 20.1 H (4-6) % Calcium (8.4-10.2) mg/dL Phosphorus (2.5-4.5) mg/dL Magnesium (1.7-2.3) mg/dL AST (5-40) units/L ALT (7-56) units/L Alkaline Phosphatase (35-129) units/L Albumin (3.9-5) g/dL 10/07/18 10/07/18 10/07/18 Range/Units 20:08 21:16 21:16 WBC (4.5-11.0) K/mm3 RDW (13.2-15.2) % Lymph % (Auto) (13.4-35.0) % [place] % (Auto) (0.0-7.3) % [place] # (0.0-0.8) K/mm3 Seg Neutrophils % (40.0-70.0) % Seg Neutrophils # (1.8-7.7) K/mm3 APTT (24.2-36.6) Sec. VBG pH (7.320-7.420) Sodium (137-145) mmol/L Potassium (3.6-5.0) mmol/L Chloride (98-107) mmol/L Carbon Dioxide (22-30) mmol/L BUN (9-20) mg/dL Creatinine (0.8-1.5) mg/dL Glucose (75-100) mg/dL POC Glucose 375 H (70-105) Hemoglobin A1c (4-6) % Calcium (8.4-10.2) mg/dL Phosphorus 2.30 L (2.5-4.5) mg/dL Magnesium 1.50 L (1.7-2.3) mg/dL AST < 5 L (5-40) units/L ALT < 5 L (7-56) units/L Alkaline Phosphatase 136 H (35-129) units/L Albumin 2.7 L (3.9-5) g/dL 10/07/18 10/07/18 10/07/18 Range/Units 21:16 21:26 23:08 WBC (4.5-11.0) K/mm3 RDW (13.2-15.2) % Lymph % (Auto) (13.4-35.0) % [place] % (Auto) (0.0-7.3) % [place] # (0.0-0.8) K/mm3 Seg Neutrophils % (40.0-70.0) % Seg Neutrophils # (1.8-7.7) K/mm3 APTT (24.2-36.6) Sec. VBG pH (7.320-7.420) Sodium 128 L (137-145) mmol/L Potassium (3.6-5.0) mmol/L Chloride 88.7 L (98-107) mmol/L Carbon Dioxide 17 L (22-30) mmol/L BUN (9-20) mg/dL Creatinine (0.8-1.5) mg/dL Glucose 325 H (75-100) mg/dL POC Glucose 325 H 289 H (70-105) Hemoglobin A1c (4-6) % Calcium 8.1 L (8.4-10.2) mg/dL Phosphorus (2.5-4.5) mg/dL Magnesium (1.7-2.3) mg/dL AST (5-40) units/L ALT (7-56) units/L Alkaline Phosphatase (35-129) units/L Albumin (3.9-5) g/dL 10/07/18 10/08/18 10/08/18 Range/Units 23:33 00:08 01:07 WBC (4.5-11.0) K/mm3 RDW (13.2-15.2) % Lymph % (Auto) (13.4-35.0) % [place] % (Auto) (0.0-7.3) % [place] # (0.0-0.8) K/mm3 Seg Neutrophils % (40.0-70.0) % Seg Neutrophils # (1.8-7.7) K/mm3 APTT (24.2-36.6) Sec. VBG pH (7.320-7.420) Sodium 126 L (137-145) mmol/L Potassium (3.6-5.0) mmol/L Chloride 86.7 L (98-107) mmol/L Carbon Dioxide 13 L (22-30) mmol/L BUN (9-20) mg/dL Creatinine 0.7 L (0.8-1.5) mg/dL Glucose 318 H (75-100) mg/dL POC Glucose 282 H 228 H (70-105) Hemoglobin A1c (4-6) % Calcium (8.4-10.2) mg/dL Phosphorus (2.5-4.5) mg/dL Magnesium (1.7-2.3) mg/dL AST (5-40) units/L ALT (7-56) units/L Alkaline Phosphatase (35-129) units/L Albumin (3.9-5) g/dL 10/08/18 10/08/18 10/08/18 Range/Units 01:23 02:11 03:05 WBC (4.5-11.0) K/mm3 RDW (13.2-15.2) % Lymph % (Auto) (13.4-35.0) % [place] % (Auto) (0.0-7.3) % [place] # (0.0-0.8) K/mm3 Seg Neutrophils % (40.0-70.0) % Seg Neutrophils # (1.8-7.7) K/mm3 APTT (24.2-36.6) Sec. VBG pH (7.320-7.420) Sodium 129 L (137-145) mmol/L Potassium 3.4 L (3.6-5.0) mmol/L Chloride 91.7 L (98-107) mmol/L Carbon Dioxide 14 L (22-30) mmol/L BUN (9-20) mg/dL Creatinine 0.6 L (0.8-1.5) mg/dL Glucose 250 H (75-100) mg/dL POC Glucose 189 H 205 H (70-105) Hemoglobin A1c (4-6) % Calcium 8.2 L (8.4-10.2) mg/dL Phosphorus (2.5-4.5) mg/dL Magnesium (1.7-2.3) mg/dL AST (5-40) units/L ALT (7-56) units/L Alkaline Phosphatase (35-129) units/L Albumin (3.9-5) g/dL 10/08/18 10/08/18 10/08/18 Range/Units 04:09 04:19 04:19 WBC (4.5-11.0) K/mm3 RDW (13.2-15.2) % Lymph % (Auto) (13.4-35.0) % [place] % (Auto) (0.0-7.3) % [place] # (0.0-0.8) K/mm3 Seg Neutrophils % (40.0-70.0) % Seg Neutrophils # (1.8-7.7) K/mm3 APTT (24.2-36.6) Sec. VBG pH (7.320-7.420) Sodium 135 L (137-145) mmol/L Potassium (3.6-5.0) mmol/L Chloride 96.7 L (98-107) mmol/L Carbon Dioxide 18 L (22-30) mmol/L BUN (9-20) mg/dL Creatinine 0.6 L (0.8-1.5) mg/dL Glucose 177 H (75-100) mg/dL POC Glucose 178 H 179 H (70-105) Hemoglobin A1c (4-6) % Calcium 8.2 L (8.4-10.2) mg/dL Phosphorus (2.5-4.5) mg/dL Magnesium (1.7-2.3) mg/dL AST (5-40) units/L ALT (7-56) units/L Alkaline Phosphatase (35-129) units/L Albumin (3.9-5) g/dL 10/08/18 10/08/18 10/08/18 Range/Units 05:31 06:14 06:49 WBC (4.5-11.0) K/mm3 RDW (13.2-15.2) % Lymph % (Auto) (13.4-35.0) % [place] % (Auto) (0.0-7.3) % [place] # (0.0-0.8) K/mm3 Seg Neutrophils % (40.0-70.0) % Seg Neutrophils # (1.8-7.7) K/mm3 APTT (24.2-36.6) Sec. VBG pH (7.320-7.420) Sodium (137-145) mmol/L Potassium (3.6-5.0) mmol/L Chloride (98-107) mmol/L Carbon Dioxide (22-30) mmol/L BUN (9-20) mg/dL Creatinine (0.8-1.5) mg/dL Glucose (75-100) mg/dL POC Glucose 158 H 149 H 131 H (70-105) Hemoglobin A1c (4-6) % Calcium (8.4-10.2) mg/dL Phosphorus (2.5-4.5) mg/dL Magnesium (1.7-2.3) mg/dL AST (5-40) units/L ALT (7-56) units/L Alkaline Phosphatase (35-129) units/L Albumin (3.9-5) g/dL 10/08/18 10/08/18 10/08/18 Range/Units 07:38 08:14 09:06 WBC (4.5-11.0) K/mm3 RDW (13.2-15.2) % Lymph % (Auto) (13.4-35.0) % [place] % (Auto) (0.0-7.3) % [place] # (0.0-0.8) K/mm3 Seg Neutrophils % (40.0-70.0) % Seg Neutrophils # (1.8-7.7) K/mm3 APTT (24.2-36.6) Sec. VBG pH (7.320-7.420) Sodium (137-145) mmol/L Potassium (3.6-5.0) mmol/L Chloride (98-107) mmol/L Carbon Dioxide (22-30) mmol/L BUN (9-20) mg/dL Creatinine (0.8-1.5) mg/dL Glucose (75-100) mg/dL POC Glucose 129 H 146 H 147 H (70-105) Hemoglobin A1c (4-6) % Calcium (8.4-10.2) mg/dL Phosphorus (2.5-4.5) mg/dL Magnesium (1.7-2.3) mg/dL AST (5-40) units/L ALT (7-56) units/L Alkaline Phosphatase (35-129) units/L Albumin (3.9-5) g/dL 10/08/18 10/08/18 Range/Units 10:05 10:57 WBC (4.5-11.0) K/mm3 RDW (13.2-15.2) % Lymph % (Auto) (13.4-35.0) % [place] % (Auto) (0.0-7.3) % [place] # (0.0-0.8) K/mm3 Seg Neutrophils % (40.0-70.0) % Seg Neutrophils # (1.8-7.7) K/mm3 APTT (24.2-36.6) Sec. VBG pH (7.320-7.420) Sodium (137-145) mmol/L Potassium (3.6-5.0) mmol/L Chloride (98-107) mmol/L Carbon Dioxide (22-30) mmol/L BUN (9-20) mg/dL Creatinine (0.8-1.5) mg/dL Glucose (75-100) mg/dL POC Glucose 172 H 176 H (70-105) Hemoglobin A1c (4-6) % Calcium (8.4-10.2) mg/dL Phosphorus (2.5-4.5) mg/dL Magnesium (1.7-2.3) mg/dL AST (5-40) units/L ALT (7-56) units/L Alkaline Phosphatase (35-129) units/L Albumin (3.9-5) g/dL Diabetes panel 10/07/18 10/07/18 10/07/18 Range/Units 18:25 18:25 21:16 Sodium 123 L (137-145) mmol/L Potassium 4.3 (3.6-5.0) mmol/L Chloride 78.4 L (98-107) mmol/L Carbon Dioxide 17 L (22-30) mmol/L BUN 24 H (9-20) mg/dL Creatinine 0.9 (0.8-1.5) mg/dL Glucose 480 H (75-100) mg/dL Hemoglobin A1c > 20.1 H (4-6) % Calcium 9.5 (8.4-10.2) mg/dL AST < 5 L (5-40) units/L ALT < 5 L (7-56) units/L Alkaline Phosphatase 136 H (35-129) units/L Total Protein 6.8 (6.3-8.2) g/dL Albumin 2.7 L (3.9-5) g/dL 10/07/18 10/07/18 10/08/18 Range/Units 21:16 23:33 01:23 Sodium 128 L 126 L 129 L (137-145) mmol/L Potassium 4.5 3.6 3.4 L (3.6-5.0) mmol/L Chloride 88.7 L 86.7 L 91.7 L (98-107) mmol/L Carbon Dioxide 17 L 13 L 14 L (22-30) mmol/L BUN 19 16 13 (9-20) mg/dL Creatinine 0.8 0.7 L 0.6 L (0.8-1.5) mg/dL Glucose 325 H 318 H 250 H (75-100) mg/dL Hemoglobin A1c (4-6) % Calcium 8.1 L 8.4 8.2 L (8.4-10.2) mg/dL AST (5-40) units/L ALT (7-56) units/L Alkaline Phosphatase (35-129) units/L Total Protein (6.3-8.2) g/dL Albumin (3.9-5) g/dL 10/08/18 Range/Units 04:19 Sodium 135 L (137-145) mmol/L Potassium 3.6 (3.6-5.0) mmol/L Chloride 96.7 L (98-107) mmol/L Carbon Dioxide 18 L (22-30) mmol/L BUN 10 (9-20) mg/dL Creatinine 0.6 L (0.8-1.5) mg/dL Glucose 177 H (75-100) mg/dL Hemoglobin A1c (4-6) % Calcium 8.2 L (8.4-10.2) mg/dL AST (5-40) units/L ALT (7-56) units/L Alkaline Phosphatase (35-129) units/L Total Protein (6.3-8.2) g/dL Albumin (3.9-5) g/dL Calcium panel 10/07/18 10/07/18 10/07/18 Range/Units 18:25 21:16 21:16 Calcium 9.5 (8.4-10.2) mg/dL Phosphorus 2.30 L (2.5-4.5) mg/dL Albumin 2.7 L (3.9-5) g/dL 10/07/18 10/07/18 10/08/18 Range/Units 21:16 23:33 01:23 Calcium 8.1 L 8.4 8.2 L (8.4-10.2) mg/dL Phosphorus (2.5-4.5) mg/dL Albumin (3.9-5) g/dL 10/08/18 Range/Units 04:19 Calcium 8.2 L (8.4-10.2) mg/dL Phosphorus (2.5-4.5) mg/dL Albumin (3.9-5) g/dL Pituitary panel 10/07/18 10/07/18 10/07/18 Range/Units 18:25 21:16 23:33 Sodium 123 L 128 L 126 L (137-145) mmol/L Potassium 4.3 4.5 3.6 (3.6-5.0) mmol/L Chloride 78.4 L 88.7 L 86.7 L (98-107) mmol/L Carbon Dioxide 17 L 17 L 13 L (22-30) mmol/L BUN 24 H 19 16 (9-20) mg/dL Creatinine 0.9 0.8 0.7 L (0.8-1.5) mg/dL Glucose 480 H 325 H 318 H (75-100) mg/dL Calcium 9.5 8.1 L 8.4 (8.4-10.2) mg/dL 10/08/18 10/08/18 Range/Units 01:23 04:19 Sodium 129 L 135 L (137-145) mmol/L Potassium 3.4 L 3.6 (3.6-5.0) mmol/L Chloride 91.7 L 96.7 L (98-107) mmol/L Carbon Dioxide 14 L 18 L (22-30) mmol/L BUN 13 10 (9-20) mg/dL Creatinine 0.6 L 0.6 L (0.8-1.5) mg/dL Glucose 250 H 177 H (75-100) mg/dL Calcium 8.2 L 8.2 L (8.4-10.2) mg/dL Adrenal panel 10/07/18 10/07/18 10/07/18 Range/Units 18:25 21:16 21:16 Sodium 123 L 128 L (137-145) mmol/L Potassium 4.3 4.5 (3.6-5.0) mmol/L Chloride 78.4 L 88.7 L (98-107) mmol/L Carbon Dioxide 17 L 17 L (22-30) mmol/L BUN 24 H 19 (9-20) mg/dL Creatinine 0.9 0.8 (0.8-1.5) mg/dL Glucose 480 H 325 H (75-100) mg/dL Calcium 9.5 8.1 L (8.4-10.2) mg/dL Total Bilirubin 0.20 (0.1-1.2) mg/dL AST < 5 L (5-40) units/L ALT < 5 L (7-56) units/L Alkaline Phosphatase 136 H (35-129) units/L Total Protein 6.8 (6.3-8.2) g/dL Albumin 2.7 L (3.9-5) g/dL 10/07/18 10/08/18 10/08/18 Range/Units 23:33 01:23 04:19 Sodium 126 L 129 L 135 L (137-145) mmol/L Potassium 3.6 3.4 L 3.6 (3.6-5.0) mmol/L Chloride 86.7 L 91.7 L 96.7 L (98-107) mmol/L Carbon Dioxide 13 L 14 L 18 L (22-30) mmol/L BUN 16 13 10 (9-20) mg/dL Creatinine 0.7 L 0.6 L 0.6 L (0.8-1.5) mg/dL Glucose 318 H 250 H 177 H (75-100) mg/dL Calcium 8.4 8.2 L 8.2 L (8.4-10.2) mg/dL Total Bilirubin (0.1-1.2) mg/dL AST (5-40) units/L ALT (7-56) units/L Alkaline Phosphatase (35-129) units/L Total Protein (6.3-8.2) g/dL Albumin (3.9-5) g/dL - Imaging Additional studies: Ct scan neck Assessment and Plan 48 yo M with 1. abscess of posterior neck 2. DKA Plan: 1. c/w abx 2. will need I&D at bedside. I discussed this with the patient and he is agreeable to proceed. Consent obtained 3. strict glucose control 4. may start diet per 1' 5. prn pain control D/W Dr. Tariq. Thank you, please call with questions.
--- NOTE | 2018-10-08 13:03 | Progress Note ---
Assessment and Plan Assessment and plan: 48-year-old male with a history of hypertension, diabetes develop a pimple at the back of his head which increased in size over the last 1 week. He went to seen for evaluation, his sugar was found to be greater than 600 and he was sent to the emergency room for further evaluation. He admits to foul-smelling yellow drainage from the back of his head, chills, no fever. Patient was admitted in the ICU for DKA management DKA Sepsis Cellulitis of the posterior neck Hypertension Plan Continue DKA protocol, Transition when gap closes Discussed with Surgery, Will have bedside I/D Front Maker Lockstitch consult for Diabetic education in this newly diagnosed Diabetic. Monitor serial chemistry, check A1c Consult critical care, surgery Continue IV Zosyn, follow cultures, Follow culture of the wound DVT prophylaxis cct 45 mins History Interval history: Patient seen and examined, admitted with dka and skin abscess. Hospitalist Physical - Physical exam Narrative exam: General Apperance: The patient lying in bed, breathing comfortable HEENT: Normocephalic, atraumatic. Pupils equally round and reactive to light, EOMI, no sclericterus or JVD or thyromegaly or nodule , no carotid bruit, mucous membranes moist, no exudate or erythema Heart: S1-S2, regular is rhythm Lungs: Clear to auscultation bilaterally, breathing comfortable Abdomen: Positive bowel sounds, soft, nontender, nondistended, no organomegaly Extremities: No edema cyanosis clubbing Skin: Indurated area in the Base of neck area, yellow drainage, tender to touch, positive erythema , no rash, nodule, warm and dry Neuro: cranial nerves 2-12 intact, speech is fluent, motor/sensory intact - Constitutional Vitals: Temp Pulse Resp BP Pulse Ox 98.5 F 83 12 130/82 98 10/08/18 08:00 10/08/18 10:40 10/08/18 10:40 10/08/18 10:20 10/08/18 10:40 Results - Labs CBC & Chem 7: 10/09/18 03:07 10/09/18 03:07 Labs: Laboratory Last Values WBC 19.5 K/mm3 (4.5-11.0) H 10/07/18 18:25 RBC 4.78 M/mm3 (3.65-5.03) 10/07/18 18:25 Hgb 13.9 gm/dl (11.8-15.2) 10/07/18 18:25 Hct 42.3 % (35.5-45.6) 10/07/18 18:25 MCV 89 fl (84-94) 10/07/18 18:25 MCH 29 pg (28-32) 10/07/18 18:25 MCHC 33 % (32-34) 10/07/18 18:25 RDW 13.0 % (13.2-15.2) L 10/07/18 18:25 Plt Count 244 K/mm3 (140-440) 10/07/18 18:25 Lymph % (Auto) 7.2 % (13.4-35.0) L 10/07/18 18:25 [place] % (Auto) 7.9 % (0.0-7.3) H 10/07/18 18:25 Eos % (Auto) 0.2 % (0.0-4.3) 10/07/18 18:25 Baso % (Auto) 0.5 % (0.0-1.8) 10/07/18 18:25 Lymph # 1.4 K/mm3 (1.2-5.4) 10/07/18 18:25 [place] # 1.5 K/mm3 (0.0-0.8) H 10/07/18 18:25 Eos # 0.0 K/mm3 (0.0-0.4) 10/07/18 18:25 Baso # 0.1 K/mm3 (0.0-0.1) 10/07/18 18:25 Seg Neutrophils % 84.2 % (40.0-70.0) H 10/07/18 18:25 Seg Neutrophils # 16.4 K/mm3 (1.8-7.7) H 10/07/18 18:25 PT 12.8 Sec. (12.2-14.9) 10/07/18 19:40 INR 0.92 (0.87-1.13) 10/07/18 19:40 APTT 21.3 Sec. (24.2-36.6) L 10/07/18 19:40 VBG pH 7.278 (7.320-7.420) L 10/07/18 18:25 Sodium 135 mmol/L (137-145) L 10/08/18 04:19 Potassium 3.6 mmol/L (3.6-5.0) 10/08/18 04:19 Chloride 96.7 mmol/L (98-107) L 10/08/18 04:19 Carbon Dioxide 18 mmol/L (22-30) L 10/08/18 04:19 Anion Gap 24 mmol/L 10/08/18 04:19 BUN 10 mg/dL (9-20) 10/08/18 04:19 Creatinine 0.6 mg/dL (0.8-1.5) L 10/08/18 04:19 Estimated GFR > 60 ml/min 10/08/18 04:19 BUN/Creatinine Ratio 17 % 10/08/18 04:19 Glucose 177 mg/dL (75-100) H 10/08/18 04:19 POC Glucose 176 (70-105) H 10/08/18 10:57 Hemoglobin A1c > 20.1 % (4-6) H 10/07/18 18:25 Lactic Acid 1.30 mmol/L (0.7-2.0) 10/07/18 19:40 Calcium 8.2 mg/dL (8.4-10.2) L 10/08/18 04:19 Phosphorus 2.30 mg/dL (2.5-4.5) L 10/07/18 21:16 Magnesium 1.50 mg/dL (1.7-2.3) L 10/07/18 21:16 Total Bilirubin 0.20 mg/dL (0.1-1.2) 10/07/18 21:16 Direct Bilirubin < 0.2 mg/dL (0-0.2) 10/07/18 21:16 Indirect Bilirubin 0.0 mg/dL 10/07/18 21:16 AST < 5 units/L (5-40) L 10/07/18 21:16 ALT < 5 units/L (7-56) L 10/07/18 21:16 Alkaline Phosphatase 136 units/L (35-129) H 10/07/18 21:16 Total Protein 6.8 g/dL (6.3-8.2) 10/07/18 21:16 Albumin 2.7 g/dL (3.9-5) L 10/07/18 21:16 Albumin/Globulin Ratio 0.7 % 10/07/18 21:16 Urine Color Straw (Yellow) 10/07/18 20:50 Urine Turbidity Clear (Clear) 10/07/18 20:50 Urine pH 5.0 (5.0-7.0) 10/07/18 20:50 Ur Specific [place] 1.023 (1.003-1.030) 10/07/18 20:50 Urine Protein <15 mg/dl mg/dL (Negative) 10/07/18 20:50 Urine Glucose (UA) >=500 mg/dL (Negative) 10/07/18 20:50 Urine Ketones 80 mg/dL (Negative) 10/07/18 20:50 Urine Blood Neg (Negative) 10/07/18 20:50 Urine Nitrite Neg (Negative) 10/07/18 20:50 Urine Bilirubin Neg (Negative) 10/07/18 20:50 Urine Urobilinogen < 2.0 mg/dL (<2.0) 10/07/18 20:50 Ur Leukocyte Esterase Neg (Negative) 10/07/18 20:50 Urine WBC (Auto) < 1.0 /HPF (0.0-6.0) 10/07/18 20:50 Urine RBC (Auto) 1.0 /HPF (0.0-6.0) 10/07/18 20:50 U Epithel Cells (Auto) < 1.0 /HPF (0-13.0) 10/07/18 20:50
[2018-10-08 13:22] LABS: BUN/Creatinine Ratio 13; Blood Urea Nitrogen 8 mg/dL (9-20); Calcium 8.4 mg/dL (8.4-10.2); Hemolysis Index 1
[2018-10-08] MEDS ORDERED: XYLOCAINE 1% 20 mL INFILTRATI ONE (14:15)
[2018-10-08] MEDS: MORPHINE IV PRN (14:15)
[2018-10-08] MEDS ORDERED: K-DUR PO ONE (14:48)
[2018-10-08] MEDS ORDERED: DILAUDID IV ONE (14:49)
--- NOTE | 2018-10-08 15:23 | Procedure Note ---
Date of procedure: 10/08/18 Pre-op diagnosis: posterior neck abscess Post-op diagnosis: same Procedure: incision and drainage of posterior neck abscess Findings: Time out performed. Patient placed in lateral decubitus position. Area of abscess prepped with betadine. Skin anesthetized with 1% lidocaine. A 3cm inverted T shape incision was made over the area of fluctuance and drainage using an 11 blade. The area was probed with hemostat and loculations broken up with cotton tip applicator. There was copious amount of thick purulent fluid drained from abscess cavity. The wound probed to 2.5 cm. The abscess was deep. There was a separate area of flucutance superior and to the right of the abscess cavity. The skin was anesthetized with 1% lidocaine and an inverted T shape incision was made in the skin using an 11 blade. There was purulent drainage fro m this area. All loculations broken up with cotton tip applicator. The wounds were irrigated with saline and hemostasis achieved with pressure. Each wound packed with 1 piece of mesalt packing. This was covered with 4x4 gauze and coversite dressing. The entire abscess cavity measured 7cm x 7cm. The patient tolerated the procedure well. He received IV morphine prior to the procedure and IV dilaudid after the procedure. All sharps were disposed of appropriately. Anesthesia: local Surgeon: KAPIL LAURA Estimated blood loss: minimal Pathology: list (wound culture) Specimen disposition: to lab Condition: stable Disposition: floor
[2018-10-08] MEDS ORDERED: D50W (25GM) Syringe IV PRN (17:33)
--- NOTE | 2018-10-08 17:57 | Consultation ---
History of Present Illness Consult date: 10/08/18 Requesting physician: CLAYTON MENDOZA Reason for consult: other (DKA) History of present illness: 48-year-old male with a history of hypertension, diabetes develop a pimple at the back of his head which increased in size over the last 1 week. He went to seen for evaluation, his sugar was found to be greater than 600 and he was sent to the emergency room for further evaluation. He admits to foul-smelling yellow drainage from the back of his head, chills, no fever He was admitted to the ICU with DKA requiring insulin infusion and frequent electrolyte and blood sugar monitoring. Patient was seen and examined. Vitals, labs, mediations, chart reviewed. s/p I and D for he neck abscess. Daughter and at the bedside at the time of my evaluation. Per patient preference, daughter was used as a logging specialist Review of systems Constitutional: no weight loss, fever Ears, eyes, nose, mouth and throat: no nasal congestion, no nasal discharge, no sinus pressure, no vision change, no red eye. Neck: No neck pain or rigidity. Cardiovascular: no palpitations, chest pain Respiratory: no cough, shortness of breath Gastrointestinal: no hematochezia, abdominal pain Genitourinary : no frequency , no hematuria Musculoskeletal: no joint swelling or muscle ache Integumentary: no rash, no pruritis Neurological: no parathesias, no focal weakness Endocrine: no cold or heat intolerance, no polyuria or polydipsia Hematologic/Lymphatic: no easy bruising, no easy bleeding, no gland swelling Allergic/Immunologic: no urticaria, no angioedema. PAST MEDICAL HISTORY: hypertension, diabetes SOCIAL HISTORY: Drink 3 beers/day, no drugs, life long non-smoker FAMILY HISTORY: Hypertension Past History Past Medical History: diabetes, hypertension Past Surgical History: No surgical history Social history: denies: smoking, alcohol abuse Family history: no significant family history Medications and Allergies Allergies Allergy/AdvReac Type Severity Reaction Status Date / Time No Known Allergies Allergy Verified 10/07/18 14:05 Home Medications Medication Instructions Recorded Confirmed Last Taken Type Lisinopril [Zestril TAB] 20 mg PO QDAY #30 tablet 10/29/16 10/07/18 Unknown Rx glipiZIDE [glipiZIDE ER] 5 mg PO QAM #30 tab.er.24 10/29/16 10/07/18 Unknown Rx Active Meds: Active Medications Acetaminophen (Tylenol) 650 mg PO Q4H PRN PRN Reason: Pain MILD(1-3)/Fever >100.5/LAROSE Dextrose (D50w (25gm) Syringe) 0 ml IV PRN PRN PRN Reason: Hypoglycemia Dextrose (D50w (25gm) Syringe) 50 ml IV PRN PRN PRN Reason: Hypoglycemia Enoxaparin Sodium (Lovenox) 40 mg SUB-Q QDAY [facility] Last Admin: 10/08/18 10:47 Dose: 40 mg Documented by: Piperacillin Sod/Tazobactam Sod (Zosyn/Ns 4.5gm/100ml) 4.5 gm in 100 mls @ 200 mls/hr IV Q8H HERMILO; Protocol Last Admin: 10/08/18 12:00 Dose: 200 mls/hr Documented by: Sodium Chloride (Nacl 0.9% 1000 Ml) 1,000 mls @ 125 mls/hr IV DIRECT HERMILO Last Admin: 10/08/18 01:39 Dose: 125 mls/hr Documented by: Insulin Glargine (Lantus) 20 units SUB-Q QHS HERMILO Insulin Human Lispro (Humalog) 0 unit SUB-Q ACHS HERMILO; Protocol Insulin Human Regular (Humulin R) 12 units IV ONCE ONE Stop: 10/08/18 18:01 Morphine Sulfate (Morphine) 2 mg IV Q4H PRN PRN Reason: Pain, Moderate (4-6) Last Admin: 10/08/18 14:15 Dose: 2 mg Documented by: Ondansetron HCl (Zofran) 4 mg IV Q8H PRN PRN Reason: Nausea And Vomiting Oxycodone/Acetaminophen (Percocet 5/325) 2 tab PO Q6H PRN PRN Reason: Pain, Moderate (4-6) Sodium Chloride (Sodium Chloride Flush Syringe 10 Ml) 10 ml IV BID [facility] Last Admin: 10/08/18 10:48 Dose: 10 ml Documented by: Sodium Chloride (Sodium Chloride Flush Syringe 10 Ml) 10 ml IV PRN PRN PRN Reason: LINE FLUSH Physical Examination Vital signs: Vital Signs Temp Pulse Resp BP Pulse Ox 98.1 F 94 H 18 129/79 96 10/07/18 14:05 10/07/18 14:05 10/07/18 14:05 10/07/18 14:05 10/07/18 14:05 General Apperance: The patient lying in bed, not in any distress -episodes of desaturation with sleep HEENT: Normocephalic, atraumatic. Pupils equally round and reactive to light, EOMI, no scleral icterus or JVD or thyromegaly or nodule , no carotid bruit, mucous membranes moist, no exudate or erythema Heart: RRR,S1-S2, no murmurs, gallops or rubs Lungs: Clear to auscultation bilaterally, breathing comfortable Abdomen: Positive bowel sounds, soft, non tender, non distended, no organomegaly Extremities: No edema ,cyanosis or clubbing Skin: Indurated area in the posterior neck yellow drainage, tender to touch, positive erythema Posterior neck, dressing that is blood tinged. Surrounding induration of the back of his neck Neuro: speech is fluent, no focal motor deficits Results - Laboratory Findings CBC and BMP: 10/07/18 18:25 10/08/18 12:25 PT/INR, D-dimer PT 12.8 Sec. (12.2-14.9) 10/07/18 19:40 INR 0.92 (0.87-1.13) 10/07/18 19:40 Abnormal lab findings: Abnormal Labs 10/07/18 10/07/18 10/07/18 14:07 18:25 18:25 WBC 19.5 H RDW 13.0 L Lymph % (Auto) 7.2 L Garza % (Auto) 7.9 H Garza # 1.5 H Seg Neutrophils % 84.2 H Seg Neutrophils # 16.4 H APTT VBG pH Sodium 123 L Potassium Chloride 78.4 L Carbon Dioxide 17 L BUN 24 H Creatinine Glucose 480 H POC Glucose 420 H Hemoglobin A1c Calcium Phosphorus Magnesium AST ALT Alkaline Phosphatase Albumin 10/07/18 10/07/18 10/07/18 18:25 18:25 19:40 WBC RDW Lymph % (Auto) Garza % (Auto) Garza # Seg Neutrophils % Seg Neutrophils # APTT 21.3 L VBG pH 7.278 L Sodium Potassium Chloride Carbon Dioxide BUN Creatinine Glucose POC Glucose Hemoglobin A1c > 20.1 H Calcium Phosphorus Magnesium AST ALT Alkaline Phosphatase Albumin 10/07/18 10/07/18 10/07/18 20:08 21:16 21:16 WBC RDW Lymph % (Auto) Garza % (Auto) Garza # Seg Neutrophils % Seg Neutrophils # APTT VBG pH Sodium Potassium Chloride Carbon Dioxide BUN Creatinine Glucose POC Glucose 375 H Hemoglobin A1c Calcium Phosphorus 2.30 L Magnesium 1.50 L AST < 5 L ALT < 5 L Alkaline Phosphatase 136 H Albumin 2.7 L 10/07/18 10/07/18 10/07/18 21:16 21:26 23:08 WBC RDW Lymph % (Auto) Garza % (Auto) Garza # Seg Neutrophils % Seg Neutrophils # APTT VBG pH Sodium 128 L Potassium Chloride 88.7 L Carbon Dioxide 17 L BUN Creatinine Glucose 325 H POC Glucose 325 H 289 H Hemoglobin A1c Calcium 8.1 L Phosphorus Magnesium AST ALT Alkaline Phosphatase Albumin 10/07/18 10/08/18 10/08/18 23:33 00:08 01:07 WBC RDW Lymph % (Auto) Garza % (Auto) Garza # Seg Neutrophils % Seg Neutrophils # APTT VBG pH Sodium 126 L Potassium Chloride 86.7 L Carbon Dioxide 13 L BUN Creatinine 0.7 L Glucose 318 H POC Glucose 282 H 228 H Hemoglobin A1c Calcium Phosphorus Magnesium AST ALT Alkaline Phosphatase Albumin 10/08/18 10/08/18 10/08/18 01:23 02:11 03:05 WBC RDW Lymph % (Auto) Garza % (Auto) Garza # Seg Neutrophils % Seg Neutrophils # APTT VBG pH Sodium 129 L Potassium 3.4 L Chloride 91.7 L Carbon Dioxide 14 L BUN Creatinine 0.6 L Glucose 250 H POC Glucose 189 H 205 H Hemoglobin A1c Calcium 8.2 L Phosphorus Magnesium AST ALT Alkaline Phosphatase Albumin 10/08/18 10/08/18 10/08/18 04:09 04:19 04:19 WBC RDW Lymph % (Auto) Garza % (Auto) Garza # Seg Neutrophils % Seg Neutrophils # APTT VBG pH Sodium 135 L Potassium Chloride 96.7 L Carbon Dioxide 18 L BUN Creatinine 0.6 L Glucose 177 H POC Glucose 178 H 179 H Hemoglobin A1c Calcium 8.2 L Phosphorus Magnesium AST ALT Alkaline Phosphatase Albumin 10/08/18 10/08/18 10/08/18 05:31 06:14 06:49 WBC RDW Lymph % (Auto) Garza % (Auto) Garza # Seg Neutrophils % Seg Neutrophils # APTT VBG pH Sodium Potassium Chloride Carbon Dioxide BUN Creatinine Glucose POC Glucose 158 H 149 H 131 H Hemoglobin A1c Calcium Phosphorus Magnesium AST ALT Alkaline Phosphatase Albumin 10/08/18 10/08/18 10/08/18 07:38 08:14 09:06 WBC RDW Lymph % (Auto) Garza % (Auto) Garza # Seg Neutrophils % Seg Neutrophils # APTT VBG pH Sodium Potassium Chloride Carbon Dioxide BUN Creatinine Glucose POC Glucose 129 H 146 H 147 H Hemoglobin A1c Calcium Phosphorus Magnesium AST ALT Alkaline Phosphatase Albumin 10/08/18 10/08/18 10/08/18 10:05 10:57 12:03 WBC RDW Lymph % (Auto) Garza % (Auto) Garza # Seg Neutrophils % Seg Neutrophils # APTT VBG pH Sodium Potassium Chloride Carbon Dioxide BUN Creatinine Glucose POC Glucose 172 H 176 H 159 H Hemoglobin A1c Calcium Phosphorus Magnesium AST ALT Alkaline Phosphatase Albumin 10/08/18 10/08/18 10/08/18 12:25 13:40 14:22 WBC RDW Lymph % (Auto) Garza % (Auto) Garza # Seg Neutrophils % Seg Neutrophils # APTT VBG pH Sodium Potassium 2.9 L* Chloride Carbon Dioxide BUN 8 L Creatinine 0.6 L Glucose 179 H POC Glucose 200 H 194 H Hemoglobin A1c Calcium Phosphorus Magnesium AST ALT Alkaline Phosphatase Albumin 10/08/18 15:23 WBC RDW Lymph % (Auto) Garza % (Auto) Garza # Seg Neutrophils % Seg Neutrophils # APTT VBG pH Sodium Potassium Chloride Carbon Dioxide BUN Creatinine Glucose POC Glucose 207 H Hemoglobin A1c Calcium Phosphorus Magnesium AST ALT Alkaline Phosphatase Albumin - Diagnostic Findings Additional studies: CT Neck..cellulitis, no abscess Assessment and Plan DKA Sepsis Cellulitis of the posterior neck -s/p ID Hypertension Hypokalemia -DKA management per protocol -Antibiotics, follow cultures then adjust antibiotics and de-escalate as indicated -Blood pressure management -VTE prophylaxis -Nutrition consult -Diabetic education, life style modifications -Wound care Continue all current care. Patient and family updated re care plan. All their questions were answered.
[2018-10-08] MEDS ORDERED: HumuLIN R IV ONE (18:00)
[2018-10-08] MEDS ORDERED: LANTUS SUB-Q SCH (22:00)
[2018-10-08] MEDS: HumaLOG SUB-Q SCH (22:01)
[2018-10-09] MEDS: PERCOCET 5/325 PO PRN ×3 (02:23→17:44)
[2018-10-09 04:04] LABS: Hematocrit 36.2 % (35.5-45.6); Hemoglobin 12.1 gm/dl (11.8-15.2); Mean Corpuscular HGB Conc 33 % (32-34); Mean Corpuscular Volume 86 fl (84-94); Platelet Count 260 K/mm3 (140-440); Red Cell Distribution Width 12.8 % (13.2-15.2)
[2018-10-09 04:13] LABS: BUN/Creatinine Ratio 15; Blood Urea Nitrogen 9 mg/dL (9-20); Calcium 8.7 mg/dL (8.4-10.2); Hemolysis Index 11
[2018-10-09] MEDS: ZOSYN/NS 4.5GM/100ML 4.5 GM/100 ML VIAL IV SCH (04:22)
[2018-10-09] MEDS: HumaLOG SUB-Q SCH ×4 (07:00→22:16)
--- NOTE | 2018-10-09 07:55 | Progress Note ---
Assessment and Plan Assessment and plan: 48-year-old male with a history of hypertension, diabetes develop a pimple at the back of his head which increased in size over the last 1 week. He went to seen for evaluation, his sugar was found to be greater than 600 and he was sent to the emergency room for further evaluation. He admits to foul-smelling yellow drainage from the back of his head, chills, no fever. Patient was admitted in the ICU for DKA management DKA Sepsis Cellulitis of the posterior neck s/p I/D Hypertension Plan Continue DKA protocol, Transition when gap closes Add vancomycin ID consult Discussed with Surgery, Will have bedside I/D Hydrogen Plant Operator consult for Diabetic education in this newly diagnosed Diabetic. Monitor serial chemistry, ok to transfer to [facility] Can stop zosyn Change insulin to 70/30 Follow culture of the wound DVT prophylaxis Anticipate discharge in AM if culture final sensitivity is available History Interval history: Patient seen and examined, admitted with dka and skin abscess. Hospitalist Physical - Physical exam Narrative exam: General Apperance: The patient lying in bed, breathing comfortable HEENT: Normocephalic, atraumatic. Pupils equally round and reactive to light, EOMI, no sclericterus or JVD or thyromegaly or nodule , no carotid bruit, mucous membranes moist, no exudate or erythema Heart: S1-S2, regular is rhythm Lungs: Clear to auscultation bilaterally, breathing comfortable Abdomen: Positive bowel sounds, soft, nontender, nondistended, no organomegaly Extremities: No edema cyanosis clubbing Skin: Indurated area in the Base of neck area, yellow drainage, tender to touch, positive erythema , no rash, nodule, warm and dry Neuro: cranial nerves 2-12 intact, speech is fluent, motor/sensory intact - Constitutional Vitals: Temp Pulse Resp BP Pulse Ox 99.0 F 55 L 21 116/75 96 10/09/18 04:00 10/09/18 07:00 10/09/18 07:00 10/09/18 07:00 10/09/18 07:00 Results - Labs CBC & Chem 7: 10/09/18 03:07 10/09/18 03:07 Labs: Laboratory Last Values WBC 14.1 K/mm3 (4.5-11.0) H 10/09/18 03:07 RBC 4.20 M/mm3 (3.65-5.03) 10/09/18 03:07 Hgb 12.1 gm/dl (11.8-15.2) 10/09/18 03:07 Hct 36.2 % (35.5-45.6) D 10/09/18 03:07 MCV 86 fl (84-94) 10/09/18 03:07 MCH 29 pg (28-32) 10/09/18 03:07 MCHC 33 % (32-34) 10/09/18 03:07 RDW 12.8 % (13.2-15.2) L 10/09/18 03:07 Plt Count 260 K/mm3 (140-440) 10/09/18 03:07 Lymph % (Auto) 7.2 % (13.4-35.0) L 10/07/18 18:25 [place] % (Auto) 7.9 % (0.0-7.3) H 10/07/18 18:25 Eos % (Auto) 0.2 % (0.0-4.3) 10/07/18 18:25 Baso % (Auto) 0.5 % (0.0-1.8) 10/07/18 18:25 Lymph # 1.4 K/mm3 (1.2-5.4) 10/07/18 18:25 [place] # 1.5 K/mm3 (0.0-0.8) H 10/07/18 18:25 Eos # 0.0 K/mm3 (0.0-0.4) 10/07/18 18:25 Baso # 0.1 K/mm3 (0.0-0.1) 10/07/18 18:25 Seg Neutrophils % 84.2 % (40.0-70.0) H 10/07/18 18:25 Seg Neutrophils # 16.4 K/mm3 (1.8-7.7) H 10/07/18 18:25 PT 12.8 Sec. (12.2-14.9) 10/07/18 19:40 INR 0.92 (0.87-1.13) 10/07/18 19:40 APTT 21.3 Sec. (24.2-36.6) L 10/07/18 19:40 VBG pH 7.278 (7.320-7.420) L 10/07/18 18:25 Sodium 137 mmol/L (137-145) 10/09/18 03:07 Potassium 3.4 mmol/L (3.6-5.0) L 10/09/18 03:07 Chloride 100.2 mmol/L (98-107) 10/09/18 03:07 Carbon Dioxide 25 mmol/L (22-30) 10/09/18 03:07 Anion Gap 15 mmol/L 10/09/18 03:07 BUN 9 mg/dL (9-20) 10/09/18 03:07 Creatinine 0.6 mg/dL (0.8-1.5) L 10/09/18 03:07 Estimated GFR > 60 ml/min 10/09/18 03:07 BUN/Creatinine Ratio 15 % 10/09/18 03:07 Glucose 245 mg/dL (75-100) H 10/09/18 03:07 POC Glucose 338 (70-105) H 10/09/18 06:24 Hemoglobin A1c > 20.1 % (4-6) H 10/07/18 18:25 Lactic Acid 1.30 mmol/L (0.7-2.0) 10/07/18 19:40 Calcium 8.7 mg/dL (8.4-10.2) 10/09/18 03:07 Phosphorus 2.30 mg/dL (2.5-4.5) L 10/07/18 21:16 Magnesium 1.50 mg/dL (1.7-2.3) L 10/07/18 21:16 Total Bilirubin 0.20 mg/dL (0.1-1.2) 10/07/18 21:16 Direct Bilirubin < 0.2 mg/dL (0-0.2) 10/07/18 21:16 Indirect Bilirubin 0.0 mg/dL 10/07/18 21:16 AST < 5 units/L (5-40) L 10/07/18 21:16 ALT < 5 units/L (7-56) L 10/07/18 21:16 Alkaline Phosphatase 136 units/L (35-129) H 10/07/18 21:16 Total Protein 6.8 g/dL (6.3-8.2) 10/07/18 21:16 Albumin 2.7 g/dL (3.9-5) L 10/07/18 21:16 Albumin/Globulin Ratio 0.7 % 10/07/18 21:16 Urine Color Straw (Yellow) 10/07/18 20:50 Urine Turbidity Clear (Clear) 10/07/18 20:50 Urine pH 5.0 (5.0-7.0) 10/07/18 20:50 Ur Specific [place] 1.023 (1.003-1.030) 10/07/18 20:50 Urine Protein <15 mg/dl mg/dL (Negative) 10/07/18 20:50 Urine Glucose (UA) >=500 mg/dL (Negative) 10/07/18 20:50 Urine Ketones 80 mg/dL (Negative) 10/07/18 20:50 Urine Blood Neg (Negative) 10/07/18 20:50 Urine Nitrite Neg (Negative) 10/07/18 20:50 Urine Bilirubin Neg (Negative) 10/07/18 20:50 Urine Urobilinogen < 2.0 mg/dL (<2.0) 10/07/18 20:50 Ur Leukocyte Esterase Neg (Negative) 10/07/18 20:50 Urine WBC (Auto) < 1.0 /HPF (0.0-6.0) 10/07/18 20:50 Urine RBC (Auto) 1.0 /HPF (0.0-6.0) 10/07/18 20:50 U Epithel Cells (Auto) < 1.0 /HPF (0-13.0) 10/07/18 20:50 Nutrition/Malnutrition Assess - Dietary Evaluation Nutrition/Malnutrition Findings: Nutrition Notes Start: 10/08/18 15:47 Freq: Status: Active Protocol: Document 10/08/18 15:47 OL (Rec: 10/08/18 15:50 OL [id number]) Nutrition Notes Need for Assessment generated from: MD Order Initial or Follow up Assessment Current Diagnosis Diabetes Other Pertinent Diagnosis DKA Current Diet consistent CHO Labs/Tests A1c greater than 20.1 glucose 177 Pertinent Medications insulin gtt Height 5 ft 7 in Weight 79 kg [place] Body Weight (lbs) 148.0 BMI 27.2 Subjective/Other Information RD consult for diet education. Pt. sleeping at time of visit . #1 Nutrition Diagnosis Altered nutrition-related laboratory values Etiology DKA, DM As Evidenced by Signs and Symptoms A1c greater than 20.1 Is patient on ventilator? No Is Patient Ambulatory and/or Out of Bed No REE-([facility]-confined to bed) 193.208 Calculation Used for Recommendations [facility] Additional Notes protein (1.2-2g/kg): 95-158g/ day fluid: 1mL/kcal or per MD Nutrition Intervention Change Diet Order: Consistent CHO Goal #1 Improved glycemic control Goal #2 Diet to meet 75-100% nutrient needs Anticipated Discharge Needs: CHO controlled diet Follow-Up By: 10/10/18 Additional Comments f/u: DM diet education
[2018-10-09] MEDS: LOVENOX SUB-Q SCH (10:27)
[2018-10-09] MEDS: SODIUM CHLORIDE FLUSH SYRINGE 10 ML IV SCH ×2 (10:58→22:18)
--- NOTE | 2018-10-09 11:34 | Progress Note ---
Assessment and Plan 48 yo M s/p incision and drainage of posterior neck abscess, POD 1 1. abscess of posterior neck 2. DKA Plan: 1. c/w abx 2. continue daily packing changes 3. strict glucose control 4. diabetic diet 5. prn pain control 6. f/u final cultures. MRSA precautions Thank you, please call with questions. Subjective Date of service: 10/09/18 Narrative: Pt seen and examined. No complaints. No overnight events. No f/c. Pain controlled. Objective Vital Signs - 12hr 10/08/18 10/08/18 10/09/18 23:40 23:50 00:00 Temperature 99.1 F Pulse Rate 73 70 70 Pulse Rate [ From Monitor] Respiratory 27 H 26 H 25 H Rate Blood Pressure 126/78 126/78 126/78 O2 Sat by Pulse 94 95 94 Oximetry 10/09/18 10/09/18 10/09/18 00:10 00:20 00:30 Temperature Pulse Rate 67 73 107 H Pulse Rate [ From Monitor] Respiratory 25 H 28 H 17 Rate Blood Pressure 112/59 112/59 112/59 O2 Sat by Pulse 96 95 95 Oximetry 10/09/18 10/09/18 10/09/18 00:40 00:50 01:00 Temperature Pulse Rate 68 68 77 Pulse Rate [ From Monitor] Respiratory 26 H 21 13 Rate Blood Pressure 112/59 112/59 112/59 O2 Sat by Pulse 96 95 96 Oximetry 10/09/18 10/09/18 10/09/18 01:10 01:20 01:30 Temperature Pulse Rate 75 58 L 61 Pulse Rate [ From Monitor] Respiratory 27 H 24 26 H Rate Blood Pressure 147/88 147/88 147/88 O2 Sat by Pulse 94 95 97 Oximetry 10/09/18 10/09/18 10/09/18 01:40 01:50 02:00 Temperature Pulse Rate 67 61 61 Pulse Rate [ From Monitor] Respiratory 23 24 25 H Rate Blood Pressure 147/88 147/88 147/88 O2 Sat by Pulse 93 96 95 Oximetry 10/09/18 10/09/18 10/09/18 02:10 02:20 02:30 Temperature Pulse Rate 69 73 70 Pulse Rate [ From Monitor] Respiratory 12 26 H 25 H Rate Blood Pressure 114/75 114/75 114/75 O2 Sat by Pulse 97 96 96 Oximetry 01/10/09/18 10/09/18 02:40 02:50 03:00 Temperature Pulse Rate 61 59 L 59 L Pulse Rate [ From Monitor] Respiratory 24 27 H 25 H Rate Blood Pressure 114/75 114/75 114/75 O2 Sat by Pulse 97 97 97 Oximetry 10/09/18 10/09/18 10/09/18 03:10 03:20 03:30 Temperature Pulse Rate 67 63 59 L Pulse Rate [ From Monitor] Respiratory 21 21 19 Rate Blood Pressure 126/85 126/85 126/85 O2 Sat by Pulse 97 96 93 Oximetry 10/09/18 10/09/18 10/09/18 03:40 03:50 04:00 Temperature 99.0 F Pulse Rate 59 L 61 59 L Pulse Rate [ From Monitor] Respiratory 17 16 13 Rate Blood Pressure 126/85 126/85 126/85 O2 Sat by Pulse 91 95 95 Oximetry 10/09/18 10/09/18 10/09/18 04:10 04:20 04:30 Temperature Pulse Rate 57 L 54 L 51 L Pulse Rate [ From Monitor] Respiratory 18 13 18 Rate Blood Pressure 113/66 113/66 113/66 O2 Sat by Pulse 95 95 94 Oximetry 10/09/18 10/09/18 10/09/18 04:40 04:50 05:00 Temperature Pulse Rate 52 L 52 L 51 L Pulse Rate [ From Monitor] Respiratory 17 17 17 Rate Blood Pressure 113/66 113/66 113/66 O2 Sat by Pulse 95 96 96 Oximetry 10/09/18 10/09/18 10/09/18 05:10 05:20 05:30 Temperature Pulse Rate 52 L 51 L 51 L Pulse Rate [ From Monitor] Respiratory 18 17 21 Rate Blood Pressure 109/67 109/67 109/67 O2 Sat by Pulse 95 96 97 Oximetry 10/09/18 10/09/18 10/09/18 05:40 05:50 06:00 Temperature Pulse Rate 51 L 52 L 55 L Pulse Rate [ From Monitor] Respiratory 20 20 19 Rate Blood Pressure 109/67 109/67 109/67 O2 Sat by Pulse 95 97 96 Oximetry 10/09/18 10/09/18 10/09/18 06:10 06:20 06:30 Temperature Pulse Rate 70 59 L 61 Pulse Rate [ From Monitor] Respiratory 15 17 14 Rate Blood Pressure 116/75 116/75 116/75 O2 Sat by Pulse 99 97 97 Oximetry 10/09/18 10/09/18 10/09/18 06:40 06:50 07:00 Temperature Pulse Rate 79 58 L 55 L Pulse Rate [ From Monitor] Respiratory 28 H 15 21 Rate Blood Pressure 116/75 116/75 116/75 O2 Sat by Pulse 97 96 96 Oximetry 10/09/18 10/09/18 10/09/18 07:10 07:20 07:30 Temperature Pulse Rate 54 L 59 L 60 Pulse Rate [ From Monitor] Respiratory 20 17 19 Rate Blood Pressure 123/79 123/79 123/79 O2 Sat by Pulse 96 95 97 Oximetry 10/09/18 10/09/18 10/09/18 07:40 07:50 08:00 Temperature 98.2 F Pulse Rate 59 L 61 81 Pulse Rate [ 78 From Monitor] Respiratory 18 21 17 Rate Blood Pressure 123/79 123/79 126/83 O2 Sat by Pulse 95 97 95 Oximetry 10/09/18 10/09/18 10/09/18 08:10 08:20 08:30 Temperature Pulse Rate 71 73 76 Pulse Rate [ From Monitor] Respiratory 16 15 19 Rate Blood Pressure 126/83 126/83 123/79 O2 Sat by Pulse 96 95 97 Oximetry 10/09/18 10/09/18 10/09/18 08:40 08:50 09:00 Temperature Pulse Rate 73 76 75 Pulse Rate [ From Monitor] Respiratory 22 18 23 Rate Blood Pressure 123/79 123/79 123/79 O2 Sat by Pulse 95 94 94 Oximetry 10/09/18 10/09/18 10/09/18 09:10 09:20 09:30 Temperature Pulse Rate 85 80 74 Pulse Rate [ From Monitor] Respiratory 12 13 13 Rate Blood Pressure 117/73 117/73 126/83 O2 Sat by Pulse 96 96 98 Oximetry 10/09/18 10/09/18 10/09/18 09:40 09:50 10:00 Temperature Pulse Rate 77 75 69 Pulse Rate [ From Monitor] Respiratory 12 18 20 Rate Blood Pressure 126/83 126/83 126/83 O2 Sat by Pulse 97 96 96 Oximetry 10/09/18 10/09/18 10/09/18 10:10 10:20 10:30 Temperature Pulse Rate 72 76 68 Pulse Rate [ From Monitor] Respiratory 15 13 17 Rate Blood Pressure 125/81 125/81 125/81 O2 Sat by Pulse 96 99 96 Oximetry 10/09/18 10/09/18 10/09/18 10:40 10:50 10:56 Temperature Pulse Rate 70 68 Pulse Rate [ From Monitor] Respiratory 18 18 19 Rate Blood Pressure 125/81 125/81 O2 Sat by Pulse 95 94 Oximetry 10/09/18 10/09/18 11:00 11:10 Temperature Pulse Rate 67 70 Pulse Rate [ From Monitor] Respiratory 15 13 Rate Blood Pressure 125/81 130/86 O2 Sat by Pulse 98 97 Oximetry - General physical appearance Narrative Exam: Gen: AAOx3. NAD ENT; dressing and 2 pieces of packing removed. cellulitis mildly improved. + induration. wound probed and purulent fluid expressed. wound irrigated with saline. Wound packed with 1 piece of mesalt packing each. covered with 4x4 gauze and coversite dressing. - Labs 10/09/18 03:07 10/09/18 03:07 Diabetes panel 10/08/18 10/09/18 Range/Units 12:25 03:07 Sodium 137 137 (137-145) mmol/L Potassium 2.9 L* 3.4 L (3.6-5.0) mmol/L Chloride 98.5 100.2 (98-107) mmol/L Carbon Dioxide 24 25 (22-30) mmol/L BUN 8 L 9 (9-20) mg/dL Creatinine 0.6 L 0.6 L (0.8-1.5) mg/dL Glucose 179 H 245 H (75-100) mg/dL Calcium 8.4 8.7 (8.4-10.2) mg/dL Calcium panel 10/08/18 10/09/18 Range/Units 12:25 03:07 Calcium 8.4 8.7 (8.4-10.2) mg/dL Pituitary panel 10/08/18 10/09/18 Range/Units 12:25 03:07 Sodium 137 137 (137-145) mmol/L Potassium 2.9 L* 3.4 L (3.6-5.0) mmol/L Chloride 98.5 100.2 (98-107) mmol/L Carbon Dioxide 24 25 (22-30) mmol/L BUN 8 L 9 (9-20) mg/dL Creatinine 0.6 L 0.6 L (0.8-1.5) mg/dL Glucose 179 H 245 H (75-100) mg/dL Calcium 8.4 8.7 (8.4-10.2) mg/dL Adrenal panel 10/08/18 10/09/18 Range/Units 12:25 03:07 Sodium 137 137 (137-145) mmol/L Potassium 2.9 L* 3.4 L (3.6-5.0) mmol/L Chloride 98.5 100.2 (98-107) mmol/L Carbon Dioxide 24 25 (22-30) mmol/L BUN 8 L 9 (9-20) mg/dL Creatinine 0.6 L 0.6 L (0.8-1.5) mg/dL Glucose 179 H 245 H (75-100) mg/dL Calcium 8.4 8.7 (8.4-10.2) mg/dL
[2018-10-09] MEDS ORDERED: VANCOMYCIN PHARMACY TO DOSE IV SCH (12:00)
--- NOTE | 2018-10-09 12:48 | Consultation ---
History of Present Illness - Reason for Consult Consult date: 10/09/18 neck abscess Requesting physician: CLAYTON MENDOZA - History of Present Illness 48 y/o male with history of uncontrolled DM, HTN and ETOH abuse; admitted on 10/07/2018 due to a week history of posterior neck edema, tenderness and purulent drainage associated with high home glucose. Patient was seen as an outpatient and was sent to the ED for evaluation. Denies fever, chills, N/V/D, abdominal pain. 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 Drinks daily 2-3 beers. In the ED, temp 98, HR 94, R 18, BP 129/79. WBC 19.5. Hg 13.9. Plat 244. Creat 0.9. Lactate 1.3. Glucose 480. A1C 20. UA neg. Blood cultures 10/07/2018 no growth. Patient underwent bedside I+D. Wound culture 10/07/2018 Staph aureus. Review of Systems: General: no fevers,chills or rigors HEENT: no new visual disturbance Respiratory: No cough, sputum, hemoptysis, SOB Cardiovascular: No chest pain, syncope Gastrointestinal: No nausea, vomiting or diarrhea. reports constipation. Genitourinary: No dysuria or hematuria. Musculoskeletal: No new or worsening neck pain or back pain Neurologic: No headaches, seizures Hematologic: No easy bruising or bleeding Endocrine: No night sweats or acute weight loss Skin:+post neck edema, tenderness and drainage Psychiatric: No suicidal or homicidal ideation Past History Past Medical History: diabetes, hypertension Past Surgical History: No surgical history Social history: denies: smoking, alcohol abuse Family history: no significant family history Medications and Allergies Allergies Allergy/AdvReac Type Severity Reaction Status Date / Time No Known Allergies Allergy Verified 10/07/18 14:05 Home Medications Medication Instructions Recorded Confirmed Last Taken Type RX: Lisinopril [Zestril TAB] 20 mg PO QDAY #30 tablet 10/29/16 10/07/18 Unknown Rx RX: glipiZIDE [glipiZIDE ER] 5 mg PO QAM #30 tab.er.24 10/29/16 10/07/18 Unknown Rx Active Meds: Active Medications Acetaminophen (Tylenol) 650 mg PO Q4H PRN PRN Reason: Pain MILD(1-3)/Fever >100.5/LAROSE Dextrose (D50w (25gm) Syringe) 0 ml IV PRN PRN PRN Reason: Hypoglycemia Dextrose (D50w (25gm) Syringe) 50 ml IV PRN PRN PRN Reason: Hypoglycemia Enoxaparin Sodium (Lovenox) 40 mg SUB-Q QDAY [facility] Last Admin: 10/09/18 10:27 Dose: 40 mg Documented by: Piperacillin Sod/Tazobactam Sod (Zosyn/Ns 4.5gm/100ml) 4.5 gm in 100 mls @ 200 mls/hr IV Q8H [facility]; Protocol Last Infusion: 10/09/18 07:28 Dose: Infused Documented by: Sodium Chloride (Nacl 0.9% 1000 Ml) 1,000 mls @ 125 mls/hr IV DIRECT [facility] Last Infusion: 10/09/18 07:27 Dose: Infused Documented by: Insulin Human Isoph/Insulin Regular (Humulin 70/30) 25 unit SUB-Q BIDDIAB [facility] Insulin Human Lispro (Humalog) 0 unit SUB-Q ACHS [facility]; Protocol Last Admin: 10/09/18 11:51 Dose: 4 unit Documented by: Morphine Sulfate (Morphine) 2 mg IV Q4H PRN PRN Reason: Pain, Moderate (4-6) Last Admin: 10/08/18 14:15 Dose: 2 mg Documented by: Ondansetron HCl (Zofran) 4 mg IV Q8H PRN PRN Reason: Nausea And Vomiting Oxycodone/Acetaminophen (Percocet 5/325) 2 tab PO Q6H PRN PRN Reason: Pain, Moderate (4-6) Last Admin: 10/09/18 10:56 Dose: 2 tab Documented by: Sodium Chloride (Sodium Chloride Flush Syringe 10 Ml) 10 ml IV BID [facility] Last Admin: 10/09/18 10:58 Dose: 10 ml Documented by: Sodium Chloride (Sodium Chloride Flush Syringe 10 Ml) 10 ml IV PRN PRN PRN Reason: LINE FLUSH Physical Examination - Constitutional Vitals: Vital Signs Temp Pulse Resp BP Pulse Ox 98.2 F 70 13 130/86 97 10/09/18 08:00 10/09/18 11:10 10/09/18 11:10 10/09/18 11:10 10/09/18 11:10 Temperature -Last 24 Hours Temperature 98.2 F Temperature 99.0 F Temperature 99.1 F Temperature 98.3 F Temperature 97.5 F Temperature 99.9 F Results - Labs CBC & Chem 7: 10/09/18 03:07 10/09/18 03:07 Labs: Abnormal lab results 10/08/18 10/08/18 10/08/18 Range/Units 12:03 12:25 13:40 WBC (4.5-11.0) K/mm3 RDW (13.2-15.2) % Potassium 2.9 L* (3.6-5.0) mmol/L BUN 8 L (9-20) mg/dL Creatinine 0.6 L (0.8-1.5) mg/dL Glucose 179 H (75-100) mg/dL POC Glucose 159 H 200 H (70-105) 10/08/18 10/08/18 10/08/18 Range/Units 14:22 15:23 16:59 WBC (4.5-11.0) K/mm3 RDW (13.2-15.2) % Potassium (3.6-5.0) mmol/L BUN (9-20) mg/dL Creatinine (0.8-1.5) mg/dL Glucose (75-100) mg/dL POC Glucose 194 H 207 H 173 H (70-105) 10/09/18 10/09/18 10/09/18 Range/Units 03:07 03:07 06:24 WBC 14.1 H (4.5-11.0) K/mm3 RDW 12.8 L (13.2-15.2) % Potassium 3.4 L (3.6-5.0) mmol/L BUN (9-20) mg/dL Creatinine 0.6 L (0.8-1.5) mg/dL Glucose 245 H (75-100) mg/dL POC Glucose 338 H (70-105) 10/09/18 Range/Units 11:38 WBC (4.5-11.0) K/mm3 RDW (13.2-15.2) % Potassium (3.6-5.0) mmol/L BUN (9-20) mg/dL Creatinine (0.8-1.5) mg/dL Glucose (75-100) mg/dL POC Glucose 241 H (70-105) Assessment and Plan Cultures: Blood culture 10/07/2018 no growth so far Wound culture 10/07/2018 Staph Assessment: 48 y/o male with history of uncontrolled DM, HTN and ETOH abuse; admitted on 07/28/2019 due to a week history of posterior neck edema, tenderness and purulent drainage associated with high home glucose 1) Leukocytosis: from posterior neck abscess; Blood cultures 10/07/2018 no growth, UA neg. 2) Posterior neck abscess: due to Staph aureus ? MSSA vs MRSA - S/P bedside I+D. Wound culture 10/07/2018 Staph aureus 3) DKA Recommendations: - stop zosyn - start vancomycin and cefazolin - contact isolation until MRSA is r/o - f/u wound culture - strict diabetic control, patient educated Will follow up with you. Dr Adrienne alicia tomorrow Criss Herrera MD Infectious Diseases Desulfurizer Operator [facility] M [phone] O [phone]
[2018-10-09] MEDS ORDERED: .VANCOMYCIN VIAL 1,000 MG in NACL 0.9% 100 ML IV SCH (13:00)
--- NOTE | 2018-10-09 15:15 | Progress Note ---
Assessment and Plan o complaint of chest pain, shortness of breath or cough.O2 saturation 94% on room air. - Patient Problems (1) Cellulitis and abscess of neck Current Visit: Yes Status: Acute Plan to address problem: Patient is on cefzolin and vancomycin. (2) DKA (diabetic ketoacidoses) Current Visit: Yes Status: Acute Qualifiers: Diabetes mellitus type: type 2 Diabetes mellitus complication detail: without coma Qualified Code(s): E11.10 - Type 2 diabetes mellitus with ketoacidosis without coma Plan to address problem: Management as per primary care. (3) Hypertension Current Visit: No Status: Acute Plan to address problem: Management as per primary care. Subjective Date of service: 10/09/18 Interval history: No complaint of chest pain, shortness of breath or cough.O2 saturation 94% on room air. Objective Vital Signs - 12hr 10/09/18 10/09/18 10/09/18 03:20 03:30 03:40 Temperature Pulse Rate 63 59 L 59 L Pulse Rate [ From Monitor] Respiratory 21 19 17 Rate Blood Pressure 126/85 126/85 126/85 O2 Sat by Pulse 96 93 91 Oximetry 10/09/18 10/09/18 10/09/18 03:50 04:00 04:10 Temperature 99.0 F Pulse Rate 61 59 L 57 L Pulse Rate [ From Monitor] Respiratory 16 13 18 Rate Blood Pressure 126/85 126/85 113/66 O2 Sat by Pulse 95 95 95 Oximetry 10/09/18 10/09/18 10/09/18 04:20 04:30 04:40 Temperature Pulse Rate 54 L 51 L 52 L Pulse Rate [ From Monitor] Respiratory 13 18 17 Rate Blood Pressure 113/66 113/66 113/66 O2 Sat by Pulse 95 94 95 Oximetry 10/09/18 10/09/18 10/09/18 04:50 05:00 05:10 Temperature Pulse Rate 52 L 51 L 52 L Pulse Rate [ From Monitor] Respiratory 17 17 18 Rate Blood Pressure 113/66 113/66 109/67 O2 Sat by Pulse 96 96 95 Oximetry 10/09/18 10/09/18 10/09/18 05:20 05:30 05:40 Temperature Pulse Rate 51 L 51 L 51 L Pulse Rate [ From Monitor] Respiratory 17 21 20 Rate Blood Pressure 109/67 109/67 109/67 O2 Sat by Pulse 96 97 95 Oximetry 10/09/18 10/09/18 10/09/18 05:50 06:00 06:10 Temperature Pulse Rate 52 L 55 L 70 Pulse Rate [ From Monitor] Respiratory 20 19 15 Rate Blood Pressure 109/67 109/67 116/75 O2 Sat by Pulse 97 96 99 Oximetry 10/09/18 10/09/18 10/09/18 06:20 06:30 06:40 Temperature Pulse Rate 59 L 61 79 Pulse Rate [ From Monitor] Respiratory 17 14 28 H Rate Blood Pressure 116/75 116/75 116/75 O2 Sat by Pulse 97 97 97 Oximetry 10/09/18 10/09/18 10/09/18 06:50 07:00 07:10 Temperature Pulse Rate 58 L 55 L 54 L Pulse Rate [ From Monitor] Respiratory 15 21 20 Rate Blood Pressure 116/75 116/75 123/79 O2 Sat by Pulse 96 96 96 Oximetry 10/09/18 10/09/18 10/09/18 07:20 07:30 07:40 Temperature Pulse Rate 59 L 60 59 L Pulse Rate [ From Monitor] Respiratory 17 19 18 Rate Blood Pressure 123/79 123/79 123/79 O2 Sat by Pulse 95 97 95 Oximetry 10/09/18 10/09/18 10/09/18 07:50 08:00 08:10 Temperature 98.2 F Pulse Rate 61 81 71 Pulse Rate [ 78 From Monitor] Respiratory 21 17 16 Rate Blood Pressure 123/79 126/83 126/83 O2 Sat by Pulse 97 95 96 Oximetry 10/09/18 10/09/18 10/09/18 08:20 08:30 08:40 Temperature Pulse Rate 73 76 73 Pulse Rate [ From Monitor] Respiratory 15 19 22 Rate Blood Pressure 126/83 123/79 123/79 O2 Sat by Pulse 95 97 95 Oximetry 10/09/18 10/09/18 10/09/18 08:50 09:00 09:10 Temperature Pulse Rate 76 75 85 Pulse Rate [ From Monitor] Respiratory 18 23 12 Rate Blood Pressure 123/79 123/79 117/73 O2 Sat by Pulse 94 94 96 Oximetry 10/09/18 10/09/18 10/09/18 09:20 09:30 09:40 Temperature Pulse Rate 80 74 77 Pulse Rate [ From Monitor] Respiratory 13 13 12 Rate Blood Pressure 117/73 126/83 126/83 O2 Sat by Pulse 96 98 97 Oximetry 10/09/18 10/09/18 10/09/18 09:50 10:00 10:10 Temperature Pulse Rate 75 69 72 Pulse Rate [ From Monitor] Respiratory 18 20 15 Rate Blood Pressure 126/83 126/83 125/81 O2 Sat by Pulse 96 96 96 Oximetry 10/09/18 10/09/18 10/09/18 10:20 10:30 10:40 Temperature Pulse Rate 76 68 70 Pulse Rate [ From Monitor] Respiratory 13 17 18 Rate Blood Pressure 125/81 125/81 125/81 O2 Sat by Pulse 99 96 95 Oximetry 10/09/18 10/09/18 10/09/18 10:50 10:56 11:00 Temperature Pulse Rate 68 67 Pulse Rate [ From Monitor] Respiratory 18 19 15 Rate Blood Pressure 125/81 125/81 O2 Sat by Pulse 94 98 Oximetry 10/09/18 11:10 Temperature Pulse Rate 70 Pulse Rate [ From Monitor] Respiratory 13 Rate Blood Pressure 130/86 O2 Sat by Pulse 97 Oximetry Constitutional: no acute distress, alert, other Eyes: non-icteric Neck: supple, no lymphadenopathy, other (Neck abscess.) Ascultation: Bilateral: clear Cardiovascular: regular rate and rhythm Gastrointestinal: normoactive bowel sounds, soft, non-tender Integumentary: normal Extremities: no cyanosis, no edema Neurologic: normal mental status, non-focal exam, pupils equal and round, CN II- XII normal Psychiatric: mood appropriate CBC and BMP: 10/09/18 03:07 10/09/18 03:07 ABG, PT/INR, D-dimer: PT/INR, D-dimer PT 12.8 Sec. (12.2-14.9) 10/07/18 19:40 INR 0.92 (0.87-1.13) 10/07/18 19:40 Abnormal lab findings: Abnormal Labs 10/07/18 10/07/18 10/07/18 14:07 18:25 18:25 WBC 19.5 H RDW 13.0 L Lymph % (Auto) 7.2 L Lassen % (Auto) 7.9 H Lassen # 1.5 H Seg Neutrophils % 84.2 H Seg Neutrophils # 16.4 H APTT VBG pH Sodium 123 L Potassium Chloride 78.4 L Carbon Dioxide 17 L BUN 24 H Creatinine Glucose 480 H POC Glucose 420 H Hemoglobin A1c Calcium Phosphorus Magnesium AST ALT Alkaline Phosphatase Albumin 10/07/18 10/07/18 10/07/18 18:25 18:25 19:40 WBC RDW Lymph % (Auto) Lassen % (Auto) Lassen # Seg Neutrophils % Seg Neutrophils # APTT 21.3 L VBG pH 7.278 L Sodium Potassium Chloride Carbon Dioxide BUN Creatinine Glucose POC Glucose Hemoglobin A1c > 20.1 H Calcium Phosphorus Magnesium AST ALT Alkaline Phosphatase Albumin 10/07/18 10/07/18 10/07/18 20:08 21:16 21:16 WBC RDW Lymph % (Auto) Lassen % (Auto) Lassen # Seg Neutrophils % Seg Neutrophils # APTT VBG pH Sodium Potassium Chloride Carbon Dioxide BUN Creatinine Glucose POC Glucose 375 H Hemoglobin A1c Calcium Phosphorus 2.30 L Magnesium 1.50 L AST < 5 L ALT < 5 L Alkaline Phosphatase 136 H Albumin 2.7 L 10/07/18 10/07/18 10/07/18 21:16 21:26 23:08 WBC RDW Lymph % (Auto) Lassen % (Auto) Lassen # Seg Neutrophils % Seg Neutrophils # APTT VBG pH Sodium 128 L Potassium Chloride 88.7 L Carbon Dioxide 17 L BUN Creatinine Glucose 325 H POC Glucose 325 H 289 H Hemoglobin A1c Calcium 8.1 L Phosphorus Magnesium AST ALT Alkaline Phosphatase Albumin 10/07/18 10/08/18 10/08/18 23:33 00:08 01:07 WBC RDW Lymph % (Auto) Lassen % (Auto) Lassen # Seg Neutrophils % Seg Neutrophils # APTT VBG pH Sodium 126 L Potassium Chloride 86.7 L Carbon Dioxide 13 L BUN Creatinine 0.7 L Glucose 318 H POC Glucose 282 H 228 H Hemoglobin A1c Calcium Phosphorus Magnesium AST ALT Alkaline Phosphatase Albumin 10/08/18 10/08/18 10/08/18 01:23 02:11 03:05 WBC RDW Lymph % (Auto) Lassen % (Auto) Lassen # Seg Neutrophils % Seg Neutrophils # APTT VBG pH Sodium 129 L Potassium 3.4 L Chloride 91.7 L Carbon Dioxide 14 L BUN Creatinine 0.6 L Glucose 250 H POC Glucose 189 H 205 H Hemoglobin A1c Calcium 8.2 L Phosphorus Magnesium AST ALT Alkaline Phosphatase Albumin 10/08/18 10/08/18 10/08/18 04:09 04:19 04:19 WBC RDW Lymph % (Auto) Lassen % (Auto) Lassen # Seg Neutrophils % Seg Neutrophils # APTT VBG pH Sodium 135 L Potassium Chloride 96.7 L Carbon Dioxide 18 L BUN Creatinine 0.6 L Glucose 177 H POC Glucose 178 H 179 H Hemoglobin A1c Calcium 8.2 L Phosphorus Magnesium AST ALT Alkaline Phosphatase Albumin 10/08/18 10/08/18 10/08/18 05:31 06:14 06:49 WBC RDW Lymph % (Auto) Lassen % (Auto) Lassen # Seg Neutrophils % Seg Neutrophils # APTT VBG pH Sodium Potassium Chloride Carbon Dioxide BUN Creatinine Glucose POC Glucose 158 H 149 H 131 H Hemoglobin A1c Calcium Phosphorus Magnesium AST ALT Alkaline Phosphatase Albumin 10/08/18 10/08/18 10/08/18 07:38 08:14 09:06 WBC RDW Lymph % (Auto) Lassen % (Auto) Lassen # Seg Neutrophils % Seg Neutrophils # APTT VBG pH Sodium Potassium Chloride Carbon Dioxide BUN Creatinine Glucose POC Glucose 129 H 146 H 147 H Hemoglobin A1c Calcium Phosphorus Magnesium AST ALT Alkaline Phosphatase Albumin 10/08/18 10/08/18 10/08/18 10:05 10:57 12:03 WBC RDW Lymph % (Auto) Lassen % (Auto) Lassen # Seg Neutrophils % Seg Neutrophils # APTT VBG pH Sodium Potassium Chloride Carbon Dioxide BUN Creatinine Glucose POC Glucose 172 H 176 H 159 H Hemoglobin A1c Calcium Phosphorus Magnesium AST ALT Alkaline Phosphatase Albumin 10/08/18 10/08/18 10/08/18 12:25 13:40 14:22 WBC RDW Lymph % (Auto) Lassen % (Auto) Lassen # Seg Neutrophils % Seg Neutrophils # APTT VBG pH Sodium Potassium 2.9 L* Chloride Carbon Dioxide BUN 8 L Creatinine 0.6 L Glucose 179 H POC Glucose 200 H 194 H Hemoglobin A1c Calcium Phosphorus Magnesium AST ALT Alkaline Phosphatase Albumin 10/08/18 10/08/18 10/09/18 15:23 16:59 03:07 WBC 14.1 H RDW 12.8 L Lymph % (Auto) Lassen % (Auto) Lassen # Seg Neutrophils % Seg Neutrophils # APTT VBG pH Sodium Potassium Chloride Carbon Dioxide BUN Creatinine Glucose POC Glucose 207 H 173 H Hemoglobin A1c Calcium Phosphorus Magnesium AST ALT Alkaline Phosphatase Albumin 10/09/18 10/09/18 10/09/18 03:07 06:24 11:38 WBC RDW Lymph % (Auto) Lassen % (Auto) Lassen # Seg Neutrophils % Seg Neutrophils # APTT VBG pH Sodium Potassium 3.4 L Chloride Carbon Dioxide BUN Creatinine 0.6 L Glucose 245 H POC Glucose 338 H 241 H Hemoglobin A1c Calcium Phosphorus Magnesium AST ALT Alkaline Phosphatase Albumin
[2018-10-09] MEDS: ceFAZolin 2 GM in NACL 0.9% 100 ML IV SCH ×2 (15:32→22:14)
[2018-10-09] MEDS: MORPHINE IV PRN (15:33)
[2018-10-09] MEDS: VANCOMYCIN/NS 1 GM/250 ML 1 GM/250 ML BAG IV SCH ×2 (16:21→22:14)
[2018-10-09] MEDS: NACL 0.9% 1000 ML 1,000 ML IV SCH (17:46)
[2018-10-10] MEDS: PERCOCET 5/325 PO PRN ×2 (03:24→11:26)
[2018-10-10] MEDS: NACL 0.9% 1000 ML 1,000 ML IV SCH ×2 (03:26→11:25)
--- NOTE | 2018-10-10 08:32 | Progress Note ---
Assessment and Plan Cultures: Blood culture 10/07/2018 no growth so far Wound culture 10/07/2018 MSSA Assessment: 48 y/o male with history of uncontrolled DM, HTN and ETOH abuse; admitted on 07/28/2019 due to a week history of posterior neck edema, tenderness and purulent drainage associated with high home glucose 1) Leukocytosis: Improved from posterior neck abscess; Blood cultures 10/07/2018 no growth, UA neg. 2) Posterior neck abscess: due to Staph aureus: MSSA - S/P bedside I+D. Wound culture 10/07/2018 Staph aureus 3) DKA -- strict diabetic control, patient educated Recommendations: Can d/c Contact precaution - MSSA Can be discharged on Keflex 500 mg PO QID for 2 weeks ending 10/24/18 f/u with ID clinic in 2 weeks 10/25/18, patient given contact information, need to call office for appointment time d/w Dr. Adrienne Nino, [facility] M: [phone] O:[phone] Subjective Date of service: 10/10/18 Interval history: Patient seen and examined. Primary language Bel[place]ian, communication via interpretation line. Denied pain, fevers, sob or rashes. Stated that he was feeling better and wanted to be discharged home today. Objective - Exam Narrative Exam: General appearance: alert in NAD, conversant Eyes: anicteric sclerae, moist conjunctivae; no lid-lag; PERRLA HENT: Atraumatic; oropharynx clear Neck: Trachea midline; +posterior neck with induration, erythema and open wound mild purulence Lungs: CTA CV: RRR Abdomen: Soft, non-tender; no masses or hepatosplenomegaly Extremities: no edema Skin: Normal temperature, turgor and texture; Posterior neck cellulitis, intact dressing with redness around dressing. No drainage Psych: alert pleasant Neuro: alert oriented moving all extremities - Constitutional Vitals: Vital Signs Temp Pulse Resp BP Pulse Ox 98.4 F 57 L 20 130/89 95 10/10/18 06:23 10/10/18 06:23 10/10/18 06:23 10/10/18 06:23 10/10/18 07:26 Temperature -Last 24 Hours Temperature 98.4 F Temperature 98.5 F Temperature 99.3 F - Labs CBC & Chem 7: 10/09/18 03:07 10/09/18 03:07 Labs: Abnormal lab results 10/09/18 10/09/18 10/09/18 Range/Units 11:38 16:37 21:25 POC Glucose 241 H 277 H 261 H (70-105) 10/10/18 Range/Units 07:43 POC Glucose 211 H (70-105)
[2018-10-10] MEDS: HumaLOG SUB-Q SCH ×2 (08:46→12:58)
--- NOTE | 2018-10-10 09:01 | Progress Note ---
Assessment and Plan DKA Sepsis Cellulitis of the posterior neck s/p I & D Hypertension Hypokalemia - DKA management per protocol - Antibiotics, follow cultures then adjust antibiotics and de-escalate as indicated - Blood pressure management - VTE prophylaxis - Nutrition consult - Diabetic education, life style modifications - Wound care Subjective Date of service: 10/10/18 Interval history: DKA Sepsis Cellulitis of the posterior neck s/p I & D Hypertension Objective Vital Signs - 12hr 10/09/18 10/10/18 10/10/18 22:00 00:47 06:23 Temperature 98.5 F 98.4 F Pulse Rate 57 L Pulse Rate [ 80 Right Radial] Respiratory 20 20 20 Rate Blood Pressure 121/82 130/89 O2 Sat by Pulse 95 95 Oximetry 10/10/18 07:26 Temperature Pulse Rate Pulse Rate [ Right Radial] Respiratory Rate Blood Pressure O2 Sat by Pulse 95 Oximetry Constitutional: no acute distress, alert, other Eyes: non-icteric Neck: supple, no lymphadenopathy, other (Neck abscess.) Ascultation: Bilateral: clear Cardiovascular: regular rate and rhythm Gastrointestinal: normoactive bowel sounds, soft, non-tender Integumentary: normal Extremities: no cyanosis, no edema Neurologic: normal mental status, non-focal exam, pupils equal and round, CN II- XII normal Psychiatric: mood appropriate CBC and BMP: 10/09/18 03:07 10/09/18 03:07 ABG, PT/INR, D-dimer: PT/INR, D-dimer PT 12.8 Sec. (12.2-14.9) 10/07/18 19:40 INR 0.92 (0.87-1.13) 10/07/18 19:40 Abnormal lab findings: Abnormal Labs 10/07/18 10/07/18 10/07/18 14:07 18:25 18:25 WBC 19.5 H RDW 13.0 L Lymph % (Auto) 7.2 L Parmer % (Auto) 7.9 H Parmer # 1.5 H Seg Neutrophils % 84.2 H Seg Neutrophils # 16.4 H APTT VBG pH Sodium 123 L Potassium Chloride 78.4 L Carbon Dioxide 17 L BUN 24 H Creatinine Glucose 480 H POC Glucose 420 H Hemoglobin A1c Calcium Phosphorus Magnesium AST ALT Alkaline Phosphatase Albumin 10/07/18 10/07/18 10/07/18 18:25 18:25 19:40 WBC RDW Lymph % (Auto) Parmer % (Auto) Parmer # Seg Neutrophils % Seg Neutrophils # APTT 21.3 L VBG pH 7.278 L Sodium Potassium Chloride Carbon Dioxide BUN Creatinine Glucose POC Glucose Hemoglobin A1c > 20.1 H Calcium Phosphorus Magnesium AST ALT Alkaline Phosphatase Albumin 10/07/18 10/07/18 10/07/18 20:08 21:16 21:16 WBC RDW Lymph % (Auto) Parmer % (Auto) Parmer # Seg Neutrophils % Seg Neutrophils # APTT VBG pH Sodium Potassium Chloride Carbon Dioxide BUN Creatinine Glucose POC Glucose 375 H Hemoglobin A1c Calcium Phosphorus 2.30 L Magnesium 1.50 L AST < 5 L ALT < 5 L Alkaline Phosphatase 136 H Albumin 2.7 L 10/07/18 10/07/18 10/07/18 21:16 21:26 23:08 WBC RDW Lymph % (Auto) Parmer % (Auto) Parmer # Seg Neutrophils % Seg Neutrophils # APTT VBG pH Sodium 128 L Potassium Chloride 88.7 L Carbon Dioxide 17 L BUN Creatinine Glucose 325 H POC Glucose 325 H 289 H Hemoglobin A1c Calcium 8.1 L Phosphorus Magnesium AST ALT Alkaline Phosphatase Albumin 10/07/18 10/08/18 10/08/18 23:33 00:08 01:07 WBC RDW Lymph % (Auto) Parmer % (Auto) Parmer # Seg Neutrophils % Seg Neutrophils # APTT VBG pH Sodium 126 L Potassium Chloride 86.7 L Carbon Dioxide 13 L BUN Creatinine 0.7 L Glucose 318 H POC Glucose 282 H 228 H Hemoglobin A1c Calcium Phosphorus Magnesium AST ALT Alkaline Phosphatase Albumin 10/08/18 10/08/18 10/08/18 01:23 02:11 03:05 WBC RDW Lymph % (Auto) Parmer % (Auto) Parmer # Seg Neutrophils % Seg Neutrophils # APTT VBG pH Sodium 129 L Potassium 3.4 L Chloride 91.7 L Carbon Dioxide 14 L BUN Creatinine 0.6 L Glucose 250 H POC Glucose 189 H 205 H Hemoglobin A1c Calcium 8.2 L Phosphorus Magnesium AST ALT Alkaline Phosphatase Albumin 10/08/18 10/08/18 10/08/18 04:09 04:19 04:19 WBC RDW Lymph % (Auto) Parmer % (Auto) Parmer # Seg Neutrophils % Seg Neutrophils # APTT VBG pH Sodium 135 L Potassium Chloride 96.7 L Carbon Dioxide 18 L BUN Creatinine 0.6 L Glucose 177 H POC Glucose 178 H 179 H Hemoglobin A1c Calcium 8.2 L Phosphorus Magnesium AST ALT Alkaline Phosphatase Albumin 10/08/18 10/08/18 10/08/18 05:31 06:14 06:49 WBC RDW Lymph % (Auto) Parmer % (Auto) Parmer # Seg Neutrophils % Seg Neutrophils # APTT VBG pH Sodium Potassium Chloride Carbon Dioxide BUN Creatinine Glucose POC Glucose 158 H 149 H 131 H Hemoglobin A1c Calcium Phosphorus Magnesium AST ALT Alkaline Phosphatase Albumin 10/08/18 10/08/18 10/08/18 07:38 08:14 09:06 WBC RDW Lymph % (Auto) Parmer % (Auto) Parmer # Seg Neutrophils % Seg Neutrophils # APTT VBG pH Sodium Potassium Chloride Carbon Dioxide BUN Creatinine Glucose POC Glucose 129 H 146 H 147 H Hemoglobin A1c Calcium Phosphorus Magnesium AST ALT Alkaline Phosphatase Albumin 10/08/18 10/08/18 10/08/18 10:05 10:57 12:03 WBC RDW Lymph % (Auto) Parmer % (Auto) Parmer # Seg Neutrophils % Seg Neutrophils # APTT VBG pH Sodium Potassium Chloride Carbon Dioxide BUN Creatinine Glucose POC Glucose 172 H 176 H 159 H Hemoglobin A1c Calcium Phosphorus Magnesium AST ALT Alkaline Phosphatase Albumin 10/08/18 10/08/18 10/08/18 12:25 13:40 14:22 WBC RDW Lymph % (Auto) Parmer % (Auto) Parmer # Seg Neutrophils % Seg Neutrophils # APTT VBG pH Sodium Potassium 2.9 L* Chloride Carbon Dioxide BUN 8 L Creatinine 0.6 L Glucose 179 H POC Glucose 200 H 194 H Hemoglobin A1c Calcium Phosphorus Magnesium AST ALT Alkaline Phosphatase Albumin 10/08/18 10/08/18 10/09/18 15:23 16:59 03:07 WBC 14.1 H RDW 12.8 L Lymph % (Auto) Parmer % (Auto) Parmer # Seg Neutrophils % Seg Neutrophils # APTT VBG pH Sodium Potassium Chloride Carbon Dioxide BUN Creatinine Glucose POC Glucose 207 H 173 H Hemoglobin A1c Calcium Phosphorus Magnesium AST ALT Alkaline Phosphatase Albumin 10/09/18 10/09/18 10/09/18 03:07 06:24 11:38 WBC RDW Lymph % (Auto) Parmer % (Auto) Parmer # Seg Neutrophils % Seg Neutrophils # APTT VBG pH Sodium Potassium 3.4 L Chloride Carbon Dioxide BUN Creatinine 0.6 L Glucose 245 H POC Glucose 338 H 241 H Hemoglobin A1c Calcium Phosphorus Magnesium AST ALT Alkaline Phosphatase Albumin 10/09/18 10/09/18 10/10/18 16:37 21:25 07:43 WBC RDW Lymph % (Auto) Parmer % (Auto) Parmer # Seg Neutrophils % Seg Neutrophils # APTT VBG pH Sodium Potassium Chloride Carbon Dioxide BUN Creatinine Glucose POC Glucose 277 H 261 H 211 H Hemoglobin A1c Calcium Phosphorus Magnesium AST ALT Alkaline Phosphatase Albumin
[2018-10-10] MEDS: LOVENOX SUB-Q SCH (12:59)
[2018-10-10] MEDS: VANCOMYCIN/NS 1 GM/250 ML 1 GM/250 ML BAG IV SCH ×4 (13:02→13:06)
--- NOTE | 2018-10-10 13:21 | Discharge Summary ---
Providers - Providers Date of Admission: 10/07/18 22:35 Attending physician: CLAYTON MENDOZA MD 10/07/18 19:37 Consult to Dietitian/Nutrition [CONS] Routine Physician Instructions: Reason For Exam: DKA Reason for Consult: Nutrition Recommendations Reason for Consult: Diet education 10/07/18 22:35 Consult to Physician [CONS] Routine Comment: Consulting Provider: KAPIL LAURA Physician Instructions: Reason For Exam: abscess Consult to Physician [CONS] Routine Comment: Spoke with Dr. Day @ [id number] Consulting Provider: GALLO DAY Physician Instructions: Reason For Exam: cc 10/08/18 08:49 Consult to Wound/ET Nurse [CONS] Routine Reason For Exam: wound eval 10/09/18 07:56 Consult to Physician [CONS] Routine Comment: Consulting Provider: CALIN STONER Physician Instructions: Reason For Exam: neck abscess, s/p I AND D 10/10/18 08:01 Consult to Case Management [CONS] Routine Services Needed at Discharge: Home Health Services Other Notified:: cm Comment:: needs application for wound care center for follow up Primary care physician: [employer]ER Hospitalization Reason for admission: DKA Condition: Stable Hospital course: 48-year-old male with a history of hypertension, diabetes develop a pimple at the back of his head which increased in size over the last 1 week. He went to seen for evaluation, his sugar was found to be greater than 600 and he was sent to the emergency room for further evaluation. He admits to foul-smelling yellow drainage from the back of his head, chills, no fever. Patient was admitted in the ICU for DKA management. On admission the patient had GI evaluation and had a incision and drainage of the abscess of the neck. Imaging studies did not show any deep abscess. Cultures did grow MSSA and patient was subsequently placed on Keflex on discharge. He was treated with IV empiric antibiotics with vancomycin while in house. The patient also was treated for DKA with good improvement. Initially was thought that his DKA is also result of continued s diabetes but on further evaluation appears that the patient has been diabetic as evidenced by glipizide on his home medication which the patient recalls. Extensive counseling was given to the patient he verbalized understanding. DKA UnControlled diabetes mellitus Sepsis Cellulitis of the posterior neck s/p I/D Hypertension Disposition: [id number] HOME UNDER [facility] [place] Time spent for discharge: 35 mins Core Measure Documentation - Palliative Care Palliative Care/ Comfort Measures: Not Applicable - Core Measures Any of the following diagnoses?: none Exam - Physical Exam Narrative exam: General Apperance: The patient lying in bed, breathing comfortable HEENT: Normocephalic, atraumatic. Pupils equally round and reactive to light, EOMI, no sclericterus or JVD or thyromegaly or nodule , no carotid bruit, mucous membranes moist, no exudate or erythema Heart: S1-S2, regular is rhythm Lungs: Clear to auscultation bilaterally, breathing comfortable Abdomen: Positive bowel sounds, soft, nontender, nondistended, no organomegaly Extremities: No edema cyanosis clubbing Skin: Packing at the base of the neck with no further induration or gross drainage , no rash, nodule, warm and dry Neuro: cranial nerves 2-12 intact, speech is fluent, motor/sensory intact - Constitutional Vitals: Temp Pulse Resp BP Pulse Ox 98.4 F 57 L 20 130/89 95 10/10/18 06:23 10/10/18 06:23 10/10/18 06:23 10/10/18 06:23 10/10/18 07:26 Plan Activity: advance as tolerated, fall precautions Diet: diabetic Wound: per your surgeon's advice, per wound nurse instructions Special Instructions: record daily BP diary, record blood sugar diary Follow up with: PRIMARY CARE, [Primary Care Provider] - 3-5 Days CALIN STONER MD [Staff Physician] - 7 Days KAPIL LAURA DO [Staff Physician] - 7 Days Prescriptions: Cephalexin [Keflex] 500 mg PO BID #28 capsule glipiZIDE [glipiZIDE ER] 5 mg PO QAM #30 tab.er.24 Insulin NPH/Regular [NovoLIN 70/30] 25 unit SUB-Q BIDDIAB 30 Days units Lisinopril [Zestril TAB] 20 mg PO QDAY #30 tablet Other Discharge Orders: Glucometer supplies[Amb] Location: None Selected Glucometer (Amb) Location: None Selected
--- NOTE | 2018-10-10 13:21 | Event Note ---
Date: 10/10/18 Dressing change performed by visual basic .net developer today. Minimal purulent drainage. Packed with mesalt. The patient has been afebrile. Continue dressing changes by nursing. Case management consulted for helping hands application so patient may follow up in wound care center on discharge. Continue antibiotics per ID. Ok to dc from surgery standpoint.
[2018-10-10 17:29] VITALS: BP 127/87
== END 2018-10-10 17:16 | disposition home health service (06) | DRG 853 ==
LOC: ED 13:56 → CC1 22:35 → 3A 10-09 12:24
PROVIDERS: ADMIT Internal Medicine; ATTEND Internal Medicine
PROC: 0J950ZZ Drainage of Left Neck Subcutaneous Tissue and Fascia, Open Approach (ICD-10-PCS; principal; 2018-10-08)
PROC: 0J940ZZ Drainage of Right Neck Subcutaneous Tissue and Fascia, Open Approach (ICD-10-PCS; 2018-10-08)
DX: A41.9 Sepsis, unspecified organism (principal); E11.10 Type 2 diabetes mellitus with ketoacidosis without coma; L03.221 Cellulitis of neck; L02.11 Cutaneous abscess of neck; I10 Essential (primary) hypertension; Z82.49 Family history of ischemic heart disease and other diseases of the circulatory system; E87.6 Hypokalemia; F10.10 Alcohol abuse, uncomplicated; F17.200 Nicotine dependence, unspecified, uncomplicated; B95.61 Methicillin susceptible Staphylococcus aureus infection as the cause of diseases classified elsewhere
CPT/HCPCS: 36415; 70491; 80048; 80076; 81001; 82140; 82805; 82962; 83036; 83735; 84100; 85025; 85027; 85610; 85730; 87040; 87076; 87116; 87186; 96365; 96375; G0378; J0690; J1170; J1650; J1815; J2270; J2543; J3370; J3475; J7030; J7040; Q9967